=== PATIENT | male | born 1945 | race Caucasian/White ===

== ENCOUNTER 2021-10-22 12:00 | Outpatient (CLI) | payer MEDICARE, SELFPAY ==
--- NOTE | 2021-10-22 12:00 | NM_ITS ---
Final Report Patient: ERIK PAT Facility:?[facility] Patient ID:?[id number] Site Patient ID:?[id number] Site :?[id number] Study:?NM Hip Procedure THREE PHASE BONE SCAN-10/22/2021 3:40:39 PM Ordering Physician:?Eddie Mason Final Report: HISTORY: 76-year-old male. Bilateral hip replacements. Left hip pain. TECHNIQUE: 27.3 millicuries of [id number] was injected intravenously. Three phase images of the pelvis and hips were obtained. FINDINGS: The blood pool blood flow and blood pool images are unremarkable. The delayed images demonstrate bilateral hip replacements. There is abnormally increased uptake surrounding the left femoral prosthetic component and to a lesser degree the left acetabular prosthetic component. These findings are suspicious for loosening, or less likely infection. Also noted is mildly increased uptake adjacent to the distal tip of the right femoral prosthetic component. If the patient is not symptomatic in the right hip, then this of questionable significance. IMPRESSION: There are findings consistent with loosening, or less likely infection, of the left hip prosthesis. Dictated by Gopal Harris MD @ 10/22/2021 4:28:13 PM (Electronic Signature)
== END 2021-10-22 12:01 | disposition home or self-care (01) ==
PROVIDERS: PCP Family Medicine; Visit Provider Orthopaedic Surgery
DX: M25.552 Pain in left hip (principal); R10.32 Left lower quadrant pain; Z96.642 Presence of left artificial hip joint
CPT/HCPCS: 36415; 78315; 85025; 85651; 86140; A9503

== ENCOUNTER 2021-12-01 09:12 | Outpatient (REF) | payer MEDICARE, SELFPAY ==
--- OUTSIDE RECORDS SUMMARY | 2021-12-01 09:27 | XMS_ITS | Clinical Summary ---
:1945 Author Organization [facility] [place] [address] Care Team Providers Name Role Phone Jimenez Hamilton MD Primary Care Provider Allergies No known active allergies Medications Medication Sig Dispensed Refills Start Date End Date Status simvastatin Take 1 0 12/22/2019 Active (ZOCOR) 40 mg tablet by tablet mouth at bedtime. lisinopril-hydroc Take 1 0 Ac tive hlorothiazide Tablet by (10-12.5 mg) mouth once tablet (PRINZIDE; daily. ZESTORETIC) oxyCODONE Take 1 15 Tablet 0 08/23/2021 11/14/2021 Disconti nued (ROXICODONE) 5 mg Tablet (5 (* Med immediate release mg) by mouth complete/Regimen tabletIndications every 4 co mplete/Level of : Sciatic pain, hours if care change) left needed for Pain. Active Problems Problem Noted Date Spinal stenosis, lumbar region, with neurogenic claudi cation 08/23/2021 Status post left hip replacement 11/08/2020 Hip tendinitis, left 11/08/2020 Arthritis of lumbar spine 11/08/2020 Hypertensive disorder 06/13/2020 Chronic hip pain, left 06/08/2020 History of right hip replacement 06/08/2020 Sciatic pain, left 06/23/2018 Left buttock pain 06/23/2018 Primary osteoarthritis of left hip 01/19/2018 Left hip pain 01/19/2018 Other and unspecified hyperlipidemia 04/28/2006 Encounters Date Type Specialty Care Team Description 11/29/2021 Nurse/Clinic Staff Screening (COVID-19 Only pre-op) 11/29/2021 Travel 11/14/2021 Preop Visit Jimenez Hamilton, Preoperativ e Exam (12/03/21 MD Hip replacement (Left) Dr. Mason, [facility]) 11/14/2021 Travel from Last 3 Months Immunizations Name Administration Dates Next Due COVID-19 vaccine (Micrima 06/06/2020, 05/16/2020 30mcg/0.3mL) PF, MDV Influenza A (H1N1), Inactivated 04/12/2009, 02/27/2009 Influenza RIV4 (Age 18+ Years) 01/22/2019 PRESERV FREE Influenza, High-dose Inactivated 02/17/2020, 12/30/2017, Influenza, IIV3 (Age 6-35 mos) 02/25/2015 Influenza, IIV3 (Age >=3 years) 02/26/2014, 01/04/2013, 05/2012, 01/27/2011 Influenza, IIV4 (=>6mos) MDV 01/31/2016 Pneumococcal conj 13-Valent (Prevnar 06/26/2015 13) Pneumococcal, Unspecified 01/05/2009 TD, UNSPECIFIED 03/30/2002 Tdap 2012 Zoster (Shingrix-RZV, recombinant) 09/23/2018, 06/17/2018 Zoster (Zostavax-ZVL, live) 2012 Family History Medical History Relation Name Comments Heart Disease Father Relation Name Status Comments Father Mother Social History Tobacco Use Types Packs/Day Years Used Date Never Smoker Smokeless Tobacco: Never Used Tobacco Cessation: Counseling Given: Yes Alcohol Use Standard Drinks/Week Comments Yes 0 (1 standard drink = 0.6 oz pure alcoho l) Sex Assigned at Date Recorded Not on file COVID-19 Exposure Response Date Recorded In the last 10 days, have you been in contact with No / Unsu re 11/29/2021 8:57 AM CDT someone who was confirmed or suspected to have Coronavirus/COVID-19? Obstetrics History Last Filed Vital Signs Vital Sign Reading Time Taken Comments Blood Pressure 128/72 11/14/2021 9:12 AM CDT Pulse 75 11/14/2021 9:12 AM CDT Temperature 36.5 ??C (97.7 ??F) 08/23/2021 1:30 PM CDT Respiratory Rate 14 08/23/2021 1:30 PM CDT Oxygen Saturation 96% 11/14/2021 9:12 AM CDT Inhaled Oxygen Concentration - - Weight 88 kg (194 lb) 11/14/2021 9:12 AM CDT Height 175.3 cm (5' 9) 08/23/2021 7:10 AM CDT Body Mass Index 28.65 08/23/2021 7:10 AM CDT Plan of Treatment Health Maintenance Due Date Last Done Comments Hepatitis C screening for age 0205/27/1963 18-79 Medicare Wellness for age 65+ 05/27/2008 COVID-19 vaccine series (3 - 11/06/2020 06/06/2020, 021 Booster for Pfizer series) Depression screening for age 12+ 12/21/2020 12/22/2019, Influenza for age 65+ 11/28/2021 02/17/2020, 01/22/2019, 12/30/2017, Additional history exists Tetanus booster 2022 2012, 03/30/2002 BMI (ht and wt on same day) for 07/04/2022 07/04/2021, 05/01, age 18+ 05/14/2021, Additional history exists Tdap Completed 2012 Pneumococcal series for age 65+ Completed 06/26/2015, 11/2008 Zoster (shingles) series for age Completed 09/23/2018, , 50+ 2012 Medical Devices Implanted Type Area Lead Vulcanizing Operator Device Shelf Model / Identifier Expiration Serial / Lot Date [employer] Delta Ceramic V40 Femoral Head Left: Hip [employer]-HAZEL 03/06/2025 [id number] / Implanted: Qty: 1 on 06/13/2020 by Osorio Ulloa MD at [facility] / [id number] Procedures Procedure Name Priority Date/Time Associated Diagnosis Comme nts COVID 19 COLLECTION Routine 11/29/2021 9:03 AM Encounter for R esults for this CDT screening for procedure are in COVID-19 the results section. BASIC METABOLIC Routine 11/14/2021 9:57 AM Preop examination R esults for this PANEL CDT procedure are i n the results section. CBC W PLT NO DIFF Routine 11/14/2021 9:57 AM Preop examination Results for this CDT procedure are i n the results section. from Last 3 Months Results COVID 19 COLLECTION (11/29/2021 9:03 AM CDT) [facility] Method Time Signature TESTING [facility] 11/30/2021 [facility] Laboratory 10:30 AM LABORATORY-CE CDT NTRAL LABORATORY Comment: Specimen submitted to [facility] for testing. Specimen Anatomical Location / Collection Method Collection Oumar e Received Time (Source) Laterality / Volume Other SPECIMEN FROM Non-Blood / 11/29/2021 9:03 11/29/2021 NASOPHARYNGEAL Unknown AM CDT 11:15 AM CDT STRUCTURE / Unknown Jimenez Hamilton MD SEND OUTS Performing Organization Address City/State/ZIP Code Phon e Number [facility] [address] [place] [address] LABORATORY-CENTRAL 2000 LABORATORY (ABNORMAL) CBC W PLT NO DIFF (11/14/2021 9:57 AM CDT) [facility] Method Time Signature WHITE BLOOD 6.1 4.5 - 11.0 11/14/2021 [place] COUNT thou/cu mm 10:17 AM [facility] RED BLOOD COUNT 4.11 (L) 4.30 - 11/14/2021 [place] 5.90 10:17 AM [facility] mil/cu mm LABORATORY HEMOGLOBIN 13.8 13.5 - 11/14/2021 [place] 17.5 g/dL 10:17 AM [facility] HEMATOCRIT 40.1 37.0 - 11/14/2021 [place] 53.0 % 10:17 AM [facility] MCV 98 80 - 100 11/14/2021 [place] fL 10:17 AM [facility] MCH 33.6 26.0 - 11/14/2021 [place] 34.0 pg 10:17 AM [facility] MCHC 34.4 32.0 - 11/14/2021 [place] 36.0 g/dL 10:17 AM [facility] RDW 12.7 11.5 - 11/14/2021 [place] 15.5 % 10:17 AM [facility] PLATELET COUNT 208 140 - 440 11/14/2021 [place] thou/cu mm 10:17 AM [facility] MPV 9.4 6.5 - 11.0 11/14/2021 [place] fL 10:17 AM [facility] Specimen Anatomical Collection Method / Collection Time Recei kendal Time (Source) Location / Volume Laterality Blood BLOOD SPECIMEN / Venipuncture / 11/14/2021 9:57 2021 9:59 Unknown Unknown AM CDT AM CDT Jimenez Hamilton MD HEMATOLOGY Performing Organization Address City/State/ZIP Code Phon e Number [facility] [address] [place] [address] (ABNORMAL) BASIC METABOLIC PANEL (11/14/2021 9:57 AM CDT) Analysis Performed At Patho logist Time Signature SODIUM 139 135 - 145 11/14/2021 [place] mmol/L 10:37 AM [facility] POTASSIUM 4.3 3.5 - 5.0 11/14/2021 [place] mmol/L 10:37 AM [facility] CHLORIDE 105 98 - 110 11/14/2021 [place] mmol/L 10:37 AM [facility] CO2,TOTAL 26 21 - 31 11/14/2021 [place] mmol/L 10:37 AM [facility] ANION GAP 8 5 - 18 11/14/2021 [place] 10:37 AM [facility] GLUCOSE 122 (H) 65 - 100 11/14/2021 [place] mg/dL 10:37 AM [facility] CALCIUM 9.7 8.5 - 10.5 11/14/2021 [place] mg/dL 10:37 AM [facility] BUN 23 8 - 25 11/14/2021 [place] mg/dL 10:37 AM [facility] CREATININE 1.17 0.72 - 11/14/2021 [place] 1.25 mg/dL 10:37 AM [facility] BUN/CREAT RATIO 20 10 - 20 11/14/2021 [place] 10:37 AM [facility] eGFR 64 (L) >90 11/14/2021 [place] mL/min/1.7 10:37 AM [facility] 3m2 LABORATORY Comment: As of 2021, eGFR is calcu lated by the CKD-EPI creatinine equation without race adjustment. eGFR can be inf luenced by muscle mass, exercise, and diet. The reported eGFR is an estimation only and is only applicable if the renal function is stable. Specimen Anatomical Collection Method / Collection Time Recei kendal Time (Source) Location / Volume Laterality Blood BLOOD SPECIMEN / Venipuncture / 11/14/2021 9:57 2021 9:59 Unknown Unknown AM T AM CDT Jimenez Hamilton MD CHEMISTRY Performing Organization Address City/State/ZIP Code Phon e Number [facility] [address] [place] [address] from Last 3 Months Insurance Payer Benefit Plan / Subscriber ID Effective Dates Phone Addre ss Type Group MEDICARE PART A MEDICARE PART A [id number] 2008-Present ATTN: CLAIMS - HB USE ONLY HB ONLY [address] [facility] [place] [address] ARE [facility] MEDICARE [id number] 2019-Present [address] [place] [address] Advance Directives Documents on File Type Date Recorded Patient Erco Machine Operator Explanati on Healthcare Directive 04/29/2006 12:00 AM 05-27-16 Latest Code Status on File Code Status Date Activated Date Inactivated Comments Full Code 06/13/2020 5:56 AM 06/14/2020 1:16 PM Code Status Discussion: Discussed Care Teams Business Planner Relationship Specialty Start Date End Date Jimenez Hamilton MD PCP - General Family Practice 11/14/21 [address] [place] [place] [address]
--- OUTSIDE RECORDS SUMMARY | 2021-12-01 09:27 | XMS_ITS | Continuity of Care Document ---
:1945 Author Organization [facility] Care Team Providers Name Role Phone [facility] Unavailable Unavailable Problems Combined list of problems from Department of Defense and Veterans Affairs facilities. It does not include entries that were removed or entered in error. Problem Status Onset Problem Date of Comments Source Date Type Resolution Basal Cell Active Condition [place] Carcinoma of Skin [facility] (SCT 594402212) Hyperlipidemia Active Condition [place] (SNOMED CT [facility] [id number]) Hypertensive Active Condition [place] disorder [facility] Osteoarthritis Active Condition Jun 25, PACO HOLDER 2015 Entered [facility] By: DAVID CARCAMO Comment: S/P right total hip in 2008. Polyp of colon Active Condition Jul [facility] By: JOI ROLDAN Comment: last colonoscopy 2018 next rec 2026 Sensorineural Active Condition [place] Hearing Loss [facility] Colonoscopy normal Inactive Condition 07/10/2017 Nov 12, QUEC[place]E 2016 Entered [facility] By: JOI ROLDAN Comment: 2016 ( + FIT test) , next colonoscopy rec 2026 Impaired FASTING Inactive Condition 07/23/2021 Jun 27, Umu FERRER Glucose 2014 Entered [facility] By: JOI ROLDAN Comment: 2014 Hgb A1c 5.8 left buttock pain Inactive Condition 07/23/2021 Jun 17, QUECHEE with exertion, 2018 Entered [facility] resolves with rest By: DAVID RODRIGUEZ Comment: 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, MRI of lumbar spine ordered 05/2018Jun 17, 2018 Entered By: DAVID RODRIGUEZ Comment: if MRI shows no cause, consider ABIs, right foot Inactive Condition 07/23/2021 Jun 17, [place] weakness, unclear 2018 Entered [facility] etiology By: DAVID RODRIGUEZ Comment: MRI lumbar spine ordered 05/2018 right palm callus Inactive Condition 07/23/2021 Jun 17, QUECHEE versus early 2018 Entered [facility] CS Peyronie's By: DAVID RODRIGUEZ Comment: 05/2018, continue to monitor, asymptomatic Diagnosis: active Diagnosis [place] ICD-10[facility]CM H25.13 [facility] Age-related nuclear cataract, bilateralwith Provider Comments: Age-related nuclear cataract, bilateral Diagnosis: active Diagnosis [place] ICD-10-CM L82.1 [facility] Other seborrheic keratosiswith Provider Comments: Other seborrheic keratosis Diagnosis: active Diagnosis [place] ICD-10-CM D48.5 [facility] Neoplasm of uncertain behavior of skinwith Provider Comments: Neoplasm of uncertain behavior of skin Diagnosis: active Diagnosis [place] ICD-10-CM E78.5 [facility] Hyperlipidemia, unspecifiedwith Provider Comments: Hyperlipidemia (SCT 11612667) Medications Combined list of outpatient medications from Department of Defense and Veterans Affairs facilities. Medications provided include 1) outpatient medications from the last 15 months, and 2) patient-reported medications. Medication Details Route Status Patient Prescription Prescription Last Ordering Order Source Instructions Expires Number Dispense Provider Date Date FLUTICASONE SPRAY 2 NASAL ACTIVE 07/24/2022 [id number] MO ORHEAD, 07/24/ [place] PROPIONATE SPRAYS 2 MELODY 2022 [place] [facility] 50MCG/SPRAY IN EACH M HCS SOLN,NASAL, NOSTRIL 16GM EVERY DAY FOR COUGH AND NASAL CONGESTI ON HYDROCHLORO TAKE ONE ORALLY ACTIVE Jennifer ROLDAN 04/29 / [place] THIAZIDE TABLET OHN E 2011 [place] [facility] 12.5MG/TOY BY MOUTH HCS NOPRIL 10MG EVERY TAB MORNING SIMVASTATIN TAKE ORALLY ACTIVE 06/07/2022 [id number] MOORH EAD, 06/10/ [place] 80MG TAB ONE-HALF 2 MELODY 2022 [place] [facility] TABLET M [facility] BY MOUTH DAILY SIMVASTATIN TAKE ORALLY DISCONT 06/14/2021 [id number] M OORHEAD, 06/13/ [place] 80MG TAB ONE-HALF INUE 1 MELODY 2021 [place] [facility] TABLET M [facility] BY MOUTH DAILY Immunizations Combined list of available immunizations from the Department of Defense and Veterans Affairs facilities. Immunization Series Date Administered Site Reaction Lot CVX Drug St atus Comments Source Given By Number Code Cost Manager INFLUENZA, complet [place] UNSPECIFIED 2020 ed [place] [facility] COVID-19 2 complet [place] PJ (PFIZER), 2020 ed HEAL TH MRNA, LNP-S, PF, 30 MCG/0.3 ML DOSE COVID-19 1 complet [place] PJ (TappnGo), 2020 ed HEAL TH MRNA, LNP-S, PF, 30 MCG/0.3 ML DOSE INFLUENZA, complet [place] HIGH DOSE 2018 ed NS SEASONAL HEALT HC ARE CLINICS ZOSTER 2 complet [place] RECOMBINANT 2018 ed [place] [facility] [place] 1 complet [place] RECOMBINANT 2018 ed [facility] INFLUENZA, complet [place] SEASONAL, 2017 ed [facility] [facility] INJECTABLE [facility] INFLUENZA, complet [place] HIGH DOSE 2016 ed [place] [facility] SEAS[facility]AL [facility] INFLUENZA, complet [place] HIGH DOSE 2015 ed [place] [facility] SEAS[facility] PNEUMOCOCCAL complet [place] h,M51 [place] CONJUGATE PCV 2016 ed 194, [place] [facility] 13 HCS INFLUENZA, complet [place] SEASONAL, 2014 ed [place] [facility] INJECTABLE [facility] INFLUENZA, complet [place] SEASONAL, 2014 ed [place] [facility] INJECTABLE [facility] INFLUENZA, complet [place] UNSPECIFIED 2012 ed [facility] TDAP complet [place] 2012 ed [place] reyes, HCS [id number] A, 06/18/14 ZOSTER LIVE complet [place] 2012 ed INC, [place] [id number], HCS [id number] INFLUENZA, complet [place] UNSPECIFIED 2011 ed [facility] INFLUENZA, complet [place] UNSPECIFIED 2010 ed [facility] INFLUENZA, complet [place] UNSPECIFIED 2009 ed [place] [facility] NOVEL complet [place] INFLUENZA-H1N 2008 ed [place] [facility] 04-07, ALL HCS FORMULATIONS PNEUMOCOCCAL, complet daina ick,lo [place] UNSPECIFIED 2008 ed t [facility] [place] [facility] FORMULATION 1314y,5/ 0 HCS 8/11 INFLUENZA, complet [place] UNSPECIFIED 2008 ed [place] [facility] TD(ADULT) 01/01/ 139 complet outside [place] UNSPECIFIED 2002 ed provider [facility] S Results Combined list of recent chemistry, hematology and other laboratory results from Department of Defense and Veterans Affairs, ranging from 15 months to all on record, depending upon the facility. Order Results Value Reference Date Interpretation Specimen Commen ts Source Name Range HEMOGLOB HEMOGLOBIN 6.0 4.0 - 6.0 07/19 Specimen T ype: BLOOD [place] IN A1C A1C/HEMOGL /2021 No comment en tered. IS [facility] OBIN.TOTAL Ordering Pro vider: MELODY MOREAU IN BLOOD Report Release d Date/Time: Jul 19, 2021 10:29 AM Reporting Lab: [facility] [address] [place] [address] Performing Lab: [facility] [address] [place] [address] ANTI-HEP HEPATITIS NEGATIVE 07/19 Specimen Typ e: SERUM [place] C(EIA) C VIRUS AB /2021 No comment en tered. IS [facility] [[place]] Ordering Pro vider: MELODY MOREAU IN SERUM Report Release d Date/Time: Jul 19, 2021 10:34 AM Reporting Lab: [facility] [place] [address] Performing Lab: [facility] [place] [address] LIPID CHOLESTERO 172 <199 - 199 07/19 Specimen T ype: PLASMA [place] PANEL,NO L /2021 No comment ente red. IS [facility] N-[place]ST[place] [MASS/VOLU Ordering Pr ovider: MELODY MOREAU] IN Report Released Date/Time: Jul 19, 2021 10:29 AM SERUM OR Reporting Lab: [facility] [address] [place] [address] Performing Lab: [facility] [place] [address] LIPID CHOLESTERO 42 40 07/19 Specimen Type : PLASMA [place] PANEL,NO L IN HDL /2021 No comment ent ered. IS [facility] N-FASTIN [MASS/VOLU Ordering Pr ovider: MELODY MOREAU] IN Report Released Date/Time: Jul 19, 2021 10:29 AM SERUM OR Reporting Lab: [facility] [place] [address] Performing Lab: [facility] [address] [place] [facility] [place] [address] LIPID CHOLESTERO 94 <99 - 99 07/19 Specimen Typ e: PLASMA [place] PANEL,NO L IN LDL /2021 No comment ent ered. IS [facility] N-[place]ST[place] [MASS/VOLU Ordering Pr ovider: MELODY MOREAU] IN Report Released Date/Time: Jul 19, 2021 10:29 AM SERUM OR Reporting Lab: [facility] PLAS[facility] BY [address] [facility] [address] CALCULATIO Performing L ab: [facility] [address] [place] [facility] [place] [address] LIPID CHOLESTERO 36 <29 - 29 07/19 H Specimen Typ e: PLASMA [place] PANEL,NO L IN VLDL /2021 No comment en tered. IS [facility] N-[place] [MASS/VOLU Ordering Pr ovider: MELODY MOREAU] IN Report Released Date/Time: Jul 19, 2021 10:29 AM SERUM OR Reporting Lab: [facility] PLAS[facility] BY [address] [facility] [address] CALCULATIO Performing L ab: [facility] [address] [place] [place] [address] LIPID CHOLESTERO 130 <129 - 129 07/19 H Specimen T ype: PLASMA [place] PANEL,NO L NON HDL /2021 No comment en tered. IS [facility] N-[place] [MASS/VOLU Ordering Pr ovider: MELODY MOREAU] IN Report Released Date/Time: Jul 19, 2021 10:29 AM SERUM OR Reporting Lab: [facility] [address] [place] [facility] [place] [address] Performing Lab: [facility] [address] [place] [facility] [place] [address] LIPID TRIGLYCERI 179 <149 - 149 07/19 H Specimen T ype: PLASMA [place] PANEL,NO DE /2021 No comment ente red. IS [facility] N-FAST[place] [MASS/VOLU Ordering Pr ovider: MELODY MOREAU] IN Report Released Date/Time: Jul 19, 2021 10:29 AM SERUM OR Reporting Lab: [facility] [address] [place] [facility] [place] [address] Performing Lab: [facility] [place] [address] BASIC CREATININE 1.1 0.7 - 1.2 07/19 Specimen Ty pe: PLASMA [place] METABOLI [MASS/VOLU /2021 No comment e ntered. IS [facility] C ME] IN Ordering Provid er: MELODY MOREAU PANEL+MG SERUM OR Report Releas ed Date/Time: Jul 19, 2021 10:29 AM PLASMA Reporting Lab: [facility] [address] [place] [facility] [place] [address] Performing Lab: [facility] [address] BASIC UREA 21 8 - 26 07/19 Specimen Type: P LASMA [place] METABOLI /2021 No comment ent ered. IS [facility] C [MASS/VOLU Ordering Pro vider: LIZZETHMELODY ZAVALA M PANEL+MG ME] IN Report Release d Date/Time: Jul 19, 2021 10:29 AM SERUM OR Reporting Lab: [facility] [address] [place] [place] [address] Performing Lab: [facility] [address] [facility] [facility] [place] [address] BASIC GLUCOSE 115 74 - 100 07/19 H Specimen Type: PLASMA [place] METABOLI [MASS/VOLU /2021 No comment e ntered. IS [facility] C ME] IN Ordering Provid er: LIZZETHMELODY ZAVALA M PANEL+MG SERUM OR Report Releas ed Date/Time: Jul 19, 2021 10:29 AM PLASMA Reporting Lab: [facility] [address] [place] [address] Performing Lab: [facility] [address] [place] [place] [address] BASIC SODIUM 137 136 - 145 07/19 Specimen Type: PLASMA [place] METABOLI [MOLES/VOL /2021 No comment e ntered. IS [facility] C UME] IN Ordering Provid er: MELODY MOREAU M PANEL+MG SERUM OR Report Releas ed Date/Time: Jul 19, 2021 10:29 AM PLASMA Reporting Lab: [facility] [address] [place] [facility] [place] [address] Performing Lab: [facility] [address] [facility] [place] [address] BASIC POTASSIUM 4.1 3.5 - 5.1 07/19 Specimen Typ e: PLASMA [place] METABOLI [MOLES/VOL /2021 No comment e ntered. IS [facility] C UME] IN Ordering Provid er: LIZZETHMELODY M PANEL+MG SERUM OR Report Releas ed Date/Time: Jul 19, 2021 10:29 AM PLASMA Reporting Lab: [facility] [address] [place] [address] Performing Lab: [facility] [address] [place] [address] BASIC CHLORIDE 104 98 - 107 07/19 Specimen Type: PLASMA [place] METABOLI [MOLES/VOL /2021 No comment e ntered. IS [facility] C UME] IN Ordering Provid er: LIZZETHMELODY M PANEL+MG SERUM OR Report Releas ed Date/Time: Jul 19, 2021 10:29 AM PLASMA Reporting Lab: [facility] [place] [address] Performing Lab: [facility] [place] [address] BASIC CARBON 25 22 - 29 07/19 Specimen Type: P LASMA [place] METABOLI DIOXIDE, /2021 No comment ent ered. IS [facility] C TOTAL Ordering Provid er: LIZZETHMELODY LAGOS M PANEL+MG [MOLES/VOL Report Rele ased Date/Time: Jul 19, 2021 10:29 AM UME] IN Reporting Lab: [facility] SERUM OR [address] [place] [facility] [place] [address] PLASMA Performing Lab: [facility] [place] [address] BASIC CALCIUM 9.8 8.4 - 10.2 07/19 Specimen Type : PLASMA [place] METABOLI [MASS/VOLU /2021 No comment e ntered. IS [facility] C ME] IN Ordering Provid er: LIZZETHMELODY M PANEL+MG SERUM OR Report Releas ed Date/Time: Jul 19, 2021 10:29 AM PLASMA Reporting Lab: [facility] [place] [address] Performing Lab: [facility] [address] [facility] [place] [address] BASIC MAGNESIUM 1.9 1.6 - 2.6 07/19 Specimen Typ e: PLASMA [place] METABOLI [MASS/VOLU /2021 No comment e ntered. IS [facility] C ME] IN Ordering Provid er: LIZZETH,MELODY M PANEL+MG SERUM OR Report Releas ed Date/Time: Jul 19, 2021 10:29 AM PLASMA Reporting Lab: [facility] [place] [address] Performing Lab: [facility] [address] [place] [address] BASIC ANION GAP 8 5 - 15 07/19 Specimen Type: PLASMA [place] METABOLI IN SERUM /2021 No comment ent ered. IS [facility] C OR PLASMA Ordering Prov ider: MELODY MOREAU PANEL+MG Report Release d Date/Time: Jul 19, 2021 10:29 AM Reporting Lab: [facility] [address] [place] [address] Performing Lab: [facility] [place] [address] BASIC CREAT 69 60 07/19 Specimen Type: P LASMA [place] METABOLI EGFR(CKD-E /2021 No comment e ntered. IS [facility] C PI) Ordering Provid er: MELODY MOREAU PANEL+MG Report Release d Date/Time: Jul 19, 2021 10:29 AM Reporting Lab: [facility] [address] [facility] [place] [address] Performing Lab: [facility] [place] [address] CBC LEUKOCYTES 6.69 4.0 - 11.0 07/19 Specimen T ype: BLOOD [place] [#/VOLUME] /2021 No comment en tered. IS [facility] IN BLOOD Ordering Provi nika: MELODY MOREAU BY Report Released Date/Time: Jul 19, 2021 10:29 AM AUTOMATED Reporting Lab : [facility] [address] [facility] [place] [address] Performing Lab: [facility] [address] [facility] [place] [address] CBC ERYTHROCYT 4.28 4.6 - 6.2 07/19 L Specimen Ty pe: BLOOD [place] ES /2021 No comment enter ed. IS [facility] [#/VOLUME] Ordering Pro vider: MELODY MOREAU IN BLOOD Report Release d Date/Time: Jul 19, 2021 10:29 AM BY Reporting Lab: [facility] AUTOMATED [address] [place] [facility] [place] [address] COUNT Performing Lab: [facility] [place] [address] CBC HEMOGLOBIN 14.2 13.5 - 07/19 Specimen Type : BLOOD [place] [MASS/VOLU 17.9 No comment en tered. IS [facility] ME] IN Ordering Provid er: MELODY MOREAU BLOOD Report Released Date/Time: Jul 19, 2021 10:29 AM Reporting Lab: [facility] [place] [address] Performing Lab: [facility] [place] [address] CBC HEMATOCRIT 39.5 41 - 54 07/19 L Specimen Type : BLOOD [place] [VOLUME /2021 No comment enter ed. IS [facility] FRACTION] Ordering Prov ider: MELODY MOREAU OF BLOOD Report Release d Date/Time: Jul 19, 2021 10:29 AM BY Reporting Lab: [facility] [address] [facility] [address] COUNT Performing Lab: [facility] [address] [facility] [place] [address] CBC MCV 92.3 80 - 100 07/19 Specimen Type: BLOOD [place] [ENTITIC /2021 No comment ente red. IS [facility] VOLUME] BY Ordering Pro vider: MELODY MOREAU AUTOMATED Report Releas ed Date/Time: Jul 19, 2021 10:29 AM COUNT Reporting Lab: [facility] [place] [address] Performing Lab: [facility] [place] [address] CBC MCH 33.2 27 - 33 07/19 H Specimen Type: B LOOD [place] [ENTITIC /2021 No comment ente red. [facility] MASS] BY Ordering Provi nika: MELODY MOREAU AUTOMATED Report Releas ed Date/Time: Jul 19, 2021 10:29 AM COUNT Reporting Lab: [facility] [place] [address] Performing Lab: [facility] [address] [facility] [place] [address] CBC MCHC 35.9 32.0 - 07/19 Specimen Type: B LOOD [place] [MASS/VOLU 37.5 No comment en tered. [facility] ME] BY Ordering Provid er: MELODY MOREAU AUTOMATED Report Releas ed Date/Time: Jul 19, 2021 10:29 AM COUNT Reporting Lab: [facility] [address] [place] [address] Performing Lab: [facility] [address] [place] [address] CBC PLATELETS 204 150 - 400 07/19 Specimen Typ e: BLOOD [place] [#/VOLUME] /2021 No comment en tered. IS [facility] IN BLOOD Ordering Provi nika: MELODY MOREAU BY Report Released Date/Time: Jul 19, 2021 10:29 AM AUTOMATED Reporting Lab : [facility] [address] [place] [address] Performing Lab: [facility] [address] [place] [address] CBC PLATELET 9.1 7.4 - 10.4 07/19 Specimen Typ e: BLOOD [place] MEAN /2021 No comment enter ed. IS [facility] VOLUME Ordering Provid er: MELODY MOREAU [ENTITIC Report Release d Date/Time: Jul 19, 2021 10:29 AM VOLUME] IN Reporting La b: [facility] BLOOD BY [address] [place] [facility] [facility] [place] [address] AUTOMATED Performing La b: [facility] [address] [place] [address] CBC ERYTHROCYT 12.3 11.5 - 07/19 Specimen Type : BLOOD [place] E 14.5 /2021 No comment enter ed. IS [facility] DISTRIBUTI Ordering Pro vider: MELODY MOREAU ON WIDTH Report Release d Date/Time: Jul 19, 2021 10:29 AM [RATIO] BY Reporting La b: [facility] [address] [facility] [place] [address] COUNT Performing Lab: [facility] [address] [place] [address] HEMOGLOB HEMOGLOBIN 5.8 4.0 - 6.0 11/28 Specimen T ype: BLOOD [place] IN A1C A1C/HEMOGL /2020 No comment en tered. IS [facility] OBIN.TOTAL Ordering Pro vider: MELODY MOREAU IN BLOOD Report Release d Date/Time: Jul 11, 2020 12:09 PM Reporting Lab: [facility] [address] [place] [address] Performing Lab: [facility] [address] [place] [address] BASIC CREATININE 0.9 0.7 - 1.2 11/28 Specimen Ty pe: PLASMA [place] METABOLI [MASS/VOLU /2020 No comment e ntered. IS [facility] C ME] IN Ordering Provid er: LIZZETHMELODY ZAVALA M PANEL+MG SERUM OR Report Releas ed Date/Time: Jul 11, 2020 12:09 PM PLASMA Reporting Lab: [facility] [place] [address] Performing Lab: [facility] [address] [facility] [place] [address] BASIC UREA 19 8 - 26 11/28 Specimen Type: P LASMA [place] METABOLI /2020 No comment ent ered. [facility] [MASS/VOLU Ordering Pro vider: MELODY MOREAU M PANEL+MG ME] IN Report Release d Date/Time: Jul 11, 2020 12:09 PM SERUM OR Reporting Lab: [facility] PLASMA [address] [place] [facility] [place] [address] Performing Lab: [facility] [address] [facility] [place] [address] BASIC GLUCOSE 102 74 - 100 / H Specimen Type: PLASMA [place] METABOLI [MASS/VOLU /2020 No comment e ntered. IS [facility] C ME] IN Ordering Provid er: LIZZETHMELODY ZAVALA M PANEL+MG SERUM OR Report Releas ed Date/Time: Jul 11, 2020 12:09 PM PLASMA Reporting Lab: [facility] [address] [facility] [place] [address] Performing Lab: [facility] [address] [facility] [place] [address] BASIC SODIUM 139 136 - 145 11/28 Specimen Type: PLASMA [place] METABOLI [MOLES/VOL /2020 No comment e ntered. IS [facility] C UME] IN Ordering Provid er: MELODY MOREAU M PANEL+MG SERUM OR Report Releas ed Date/Time: Jul 11, 2020 12:09 PM PLASMA Reporting Lab: [facility] [address] [place] [facility] [place] [address] Performing Lab: [facility] [address] [facility] [place] [address] BASIC POTASSIUM 4.2 3.5 - 5.1 11/28 Specimen Typ e: PLASMA [place] METABOLI [MOLES/VOL /2020 No comment e ntered. IS [facility] C UME] IN Ordering Provid er: LIZZETHBRENDAMELODY M PANEL+MG SERUM OR Report Releas ed Date/Time: Jul 11, 2020 12:09 PM PLASMA Reporting Lab: [facility] [place] [address] Performing Lab: [facility] [address] [place] [address] BASIC CHLORIDE 106 98 - 107 11/28 Specimen Type: PLASMA [place] METABOLI [MOLES/VOL /2020 No comment e ntered. IS [facility] C UME] IN Ordering Provid er: LIZZETHIKEMELODY M PANEL+MG SERUM OR Report Releas ed Date/Time: Jul 11, 2020 12:09 PM PLASMA Reporting Lab: [facility] [address] [place] [address] Performing Lab: [facility] [place] [address] BASIC CARBON 23 22 - 29 11/28 Specimen Type: P NAWAF [place] METABOLI DIOXIDE, /2020 No comment ent ered. IS [facility] C TOTAL Ordering Provid er: MELODY MOREAU M PANEL+MG [MOLES/VOL Report Rele ased Date/Time: Jul 11, 2020 12:09 PM UME] IN Reporting Lab: [facility] SERUM OR [address] [place] [facility] [address] PLASMA Performing Lab: [facility] [place] [address] BASIC CALCIUM 9.8 8.4 - 10.2 11/28 Specimen Type : PLASMA [place] METABOLI [MASS/VOLU /2020 No comment e ntered. IS [facility] C ME] IN Ordering Provid er: LIZZETHIKEMELODY M PANEL+MG SERUM OR Report Releas ed Date/Time: Jul 11, 2020 12:09 PM PLASMA Reporting Lab: [facility] [address] [place] [address] Performing Lab: [facility] [address] [facility] [address] BASIC MAGNESIUM 2.0 1.6 - 2.6 11/28 Specimen Typ e: PLASMA [place] METABOLI [MASS/VOLU /2020 No comment e ntered. IS [facility] C ME] IN Ordering Provid er: LIZZETHIKEMELODY M PANEL+MG SERUM OR Report Releas ed Date/Time: Jul 11, 2020 12:09 PM PLASMA Reporting Lab: [facility] [place] [address] Performing Lab: [facility] [address] [place] [address] BASIC ANION GAP 10 5 - 15 11/28 Specimen Type: PLASMA [place] METABOLI IN SERUM /2020 No comment ent ered. IS [facility] C OR PLASMA Ordering Prov ider: MELODY MOREAU PANEL+MG Report Release d Date/Time: Jul 11, 2020 12:09 PM Reporting Lab: [facility] [address] [facility] [address] Performing Lab: [facility] [address] [facility] [address] BASIC GLOMERULAR 82 60 11/28 Specimen Type : PLASMA [place] METABOLI FILTRATION /2020 No comment e ntered. IS [facility] C RATE/1.73 Ordering Prov ider: MELODY MOREAU PANEL+MG SQ Report Release d Date/Time: Jul 11, 2020 12:09 PM M.PREDICTE Reporting La b: [facility] [VOLUME [address] [place] [facility] [address] RATE/AREA] Performing L ab: [facility] IN SERUM, ONE [place] [facility] [address] PLASMA OR BLOOD BY CREATININE -BASED FORMULA (CKD-EPI) LIPID CHOLESTERO 149 <199 - 199 11/28 Specimen T ype: PLASMA [place] PANEL,NO L /2020 No comment ente red. IS [facility] N-[place] [MASS/VOLU Ordering Pr ovider: MELODY MOREAU] IN Report Released Date/Time: Jul 11, 2020 12:09 PM SERUM OR Reporting Lab: [facility] PL[facility]MA [address] [facility] [address] Performing Lab: [facility] [address] [facility] [address] LIPID CHOLESTERO 47 40 11/28 Specimen Type : PLASMA [place] PANEL,NO L IN HDL /2020 No comment ent ered. IS [facility] N-[place] [MASS/VOLU Ordering Pr ovider: MELODY MOREAU] IN Report Released Date/Time: Jul 11, 2020 12:09 PM SERUM OR Reporting Lab: [facility] PL[facility]MA [address] [facility] [address] Performing Lab: [facility] [address] [facility] [address] LIPID CHOLESTERO 81 <99 - 99 11/28 Specimen Typ e: PLASMA [place] PANEL,NO L IN LDL /2020 No comment ent ered. IS [facility] [MASS/VOLU Ordering Pr ovider: MELODY MOREAU] IN Report Released Date/Time: Jul 11, 2020 12:09 PM SERUM OR Reporting Lab: [facility] [place] [facility] [phone] CALCULATIO Performing L ab: [facility] [address] [facility] [address] LIPID CHOLESTERO 21 <29 - 29 11/28 Specimen Typ e: PLASMA [place] PANEL,NO L IN VLDL /2020 No comment en tered. IS [facility] [MASS/VOLU Ordering Pr ovider: MELODY MOREAU] IN Report Released Date/Time: Jul 11, 2020 12:09 PM SERUM OR Reporting Lab: [facility] [place] [facility] [phone] CALCULATIO Performing L ab: [facility] [address] [facility] [address] LIPID CHOLESTERO 102 <129 - 129 11/28 Specimen T ype: PLASMA [place] PANEL,NO L NON HDL /2020 No comment en tered. IS [facility] [MASS/VOLU Ordering Pr ovider: MELODY MOREAU] IN Report Released Date/Time: Jul 11, 2020 12:09 PM SERUM OR Reporting Lab: [facility] [address] [facility] [address] Performing Lab: [facility] [address] [facility] [address] LIPID TRIGLYCERI 107 <149 - 149 11/28 Specimen T ype: PLASMA [place] PANEL,NO DE /2020 No comment ente red. IS [facility] [MASS/VOLU Ordering Pr ovider: MELODY MOREAU] IN Report Released Date/Time: Jul 11, 2020 12:09 PM SERUM OR Reporting Lab: [facility] [address] [facility] [address] Performing Lab: [facility] [address] [facility] [address] Vital Signs Combined list of inpatient and outpatient Vital Signs from Department of Defense and Veterans Affairs, ranging from 12 months to all on record, depending upon the facility. Vital Sign Value Date Comments Source SYSTOLIC BLOOD PRESSURE 129 07/19/2021 10:02:56 [facility] DIASTOLIC BLOOD PRESSURE 73 07/19/2021 10:02:56 [facility] PULSE OXIMETRY 94% 07/19/2021 10:02:56 [place] [facility] WEIGHT 201 07/19/2021 10:02:56 [place] [facility] BMI 30kg/m2 07/19/2021 10:02:56 [place] [facility] [facility] PAIN 0 07/19/2021 10:02:56 [place] [facility] HEIGHT 69 07/19/2021 10:02:56 [place] [facility] TEMPERATURE 98.2 07/19/2021 10:02:56 [place] [facility] PULSE 88 07/19/2021 10:02:56 [place] [facility] RESPIRATION 17 07/19/2021 10:02:56 [place] [facility] Encounters Combined list of: 1) Encounters from Department of Veterans Affairs facilities going back up to the last 18 months, not all [place] inpatient encounters are included; 2) Encounters from the Department of [facility] facilities going back up to 280 months. Location Location Encounter Encounter Reason Attending ADM DC Stat us Disposition Source Details Type Number For Provider Date Date Visit Outpatient [id number] 06/06 CHARIT[facility] NA Encounter [id number] [facility] Outpatient [id number] 06/08 [place] Encounter [id number] /2021 [facility] Outpatient [id number] Diagnos LIZZETH,E 07/11 [place] Encounter [id number] is: MYRANDA [facility] ICD-10- [facility] CM E78.5 Hyperli pidemia , unspeci fied
with Provide r Comment s: Hyperli pidemia (SCT [id number] 4) OFFICE O/P [id number] Diagnos STU CHRISTENSEN 11/28 [place] EST MOD [id number] is: ER S /2020 [facility] 30-[facility] ICD-10- [facility] CM H25.13 Age-rel ated nuclear catarac t, bilater al
with Provide r Comment s: Age-rel ated nuclear catarac t, bilater al Outpatient [id number] 12/28 [place] Encounter [id number] /2020 [facility] OFFICE O/P [id number] Diagnos LIZZETH,E 07/19 [place] EST MOD [id number] is: MYRANDA M /2021 [facility] ICD-10- HCS CM E78.5 Hyperli pidemia , unspeci fied
with Provide r Comment s: Hyperli pidemia (SCT [id number] 4) Outpatient [id number] [place] Encounter [id number] /2021 [facility] OFFICE O/P 08559-6.61 Diagnos ADIA,NO 09/27 [place] EST MOD [id number] is: RA KIRK /2021 [facility] ICD-10- HCS CM D48.5 Neoplas m of uncerta in behavio r of skin
with Provide r Comment s: Neoplas m of uncerta in behavio r of skin Outpatient [id number] ASLTK,AG 10/01 [place] Encounter [id number] Z L /2021 [facility] Outpatient [id number] Diagnos ADIA,NO 10/02 [place] Encounter [id number] is: KIRK /2021 [facility] CM L82.1 Other seborrh eic keratos is
with Provide r Comment s: Other seborrh eic keratos is Outpatient [id number] 10/08 [place] Encounter [id number] /2021 [facility] OFFICE O/P [id number] Diagnos FERMIN,STU 11/22 [place] EST MOD [id number] is: ER S /2021 [facility] 30[facility] ICD-10- HCS CM H25.13 Age-rel ated nuclear catarac t, bilater al
with Provide r Comment s: Age-rel ated nuclear catarac t, bilater al Social History Combined list of available smoking, tobacco, and other social history [facility]. Social History Type Response Date Comment Source Tobacco smoking status VA-TOBACCO NEVER USED 07/19/2021 [facility] History of tobacco use VA-TOBACCO QUIT 15 YRS 06/08/2019 [facility] OR [facility] History of tobacco use VA-TOBACCO FORMER USER 06/17/2018 [facility] History of tobacco use LIFETIME NON-TOBACCO 06/29/2017 [facility] History of tobacco use LIFETIME NON-TOBACCO 06/25/2016 [facility] History of tobacco use LIFETIME NON-TOBACCO 06/26/2015 [facility] History of tobacco use FORMER TOBACCO USER 7Y 06/27/2014 [facility] History of tobacco use FORMER TOBACCO USER 7Y 10/01/2008 [facility] History of tobacco use FORMER TOBACCO USER 7Y 07/23/2006 [facility] Plan of Care List of future care activities from Department [facility] facilities. Additional future care activities may be listed in the Assessment and Plan section. Date/Time Care Activity Care Activity Detail Facility 05/23/2022 AMBULATORY - SURGERY AMBULATORY - SURGERY [facility] Advance Directives List of completed, amended, or rescinded Advance Directives on record at Department [facility] facilities. An actual copy of the Directive is not included. Date Advance Directive Provider Source 06/09/2016 ADVANCE DIRECTIVE ROBERT WESTFALL [facility] 06/09/2016 ADVANCE DIRECTIVE DISCUSSION ROBERT WESTFALL [facility] 07/23/2006 ADVANCE DIRECTIVE JOSSUE CANTRELL [facility]
== END 2021-12-01 09:13 | disposition home or self-care (01) ==
LOC: LAB 09:12
PROVIDERS: PCP Family Medicine; Visit Provider Orthopaedic Surgery
DX: Z01.818 Encounter for other preprocedural examination (principal)
CPT/HCPCS: 36415; 86850; 86900; 86901

== ENCOUNTER 2021-12-03 08:03 | Day surgery (SDC) | payer MEDICARE, SELFPAY ==
[2021-12-03] VITALS (22 sets, daily range): BP systolic 102–147; BP diastolic 54–81; PULSE 58–76; RESP 10–20; TEMP 35.7–36.9; O2SAT 88–99; BMI 28.5
[2021-12-03] MEDS: LACTATED RINGERS 1000 ML 1,000 ML 100 ML IV ×2 (08:45→12:42)
[2021-12-03] MEDS: SODIUM CHLORIDE 0.9 % (FLUSH) 10 ML SYRINGE IVF (08:45)
[2021-12-03] MEDS: ACETAMINOPHEN 500 MG TABLET 1000 MG PO ×3 (09:00→23:51)
[2021-12-03] MEDS: OXYCODONE (CR) 10 MG TAB.ER.12H PO (09:00)
[2021-12-03] MEDS: CELECOXIB 200 MG CAPSULE PO ×2 (09:00→20:44)
--- NOTE | 2021-12-03 10:33 | SUR.PREOP ---
TIME?OUT:? PT/RN/MDA?VERIFICATION?OF?SURGICAL?SITE,?PROCEDURE,?AND?CONSENT OBTAINED?PRIOR?TO?INVASIVE?PROCEDURE. CORRECT SITE IDENTIFIED SITE MARKED BLOCK COMPLETED BY DR JAIRO MUÑOZ
[2021-12-03] MEDS: fentaNYL 100 MCG/2 ML inj IVP (10:36)
[2021-12-03] MEDS: MIDAZOLAM HCL 1 MG/ML inj IVP (10:37)
--- NOTE | 2021-12-03 10:40 | W.PM.NB ---
Nerve Block Nerve Block Time Seen by Provider: 10:40 Date Seen: 12/03/21 Type of block requested by surgeon for post-operative analgesia: ZACHERY/LFCN Side: left Time out performed: Yes Verification of patient name: Yes Verification of date of : Yes Site marking: site marked Name of person performing procedure: Praful Continuous monitoring Was continuous monitoring of O2 sat, B/P, alarm security or surveillance monitor, recorded every 15 minutes?: Yes Procedure Checklist: sterile prep, needles and gloves Ultrasound guided. Images saved: Yes Medications given in 5ml increments after negative aspiration: Ropivicaine %: 0.5 mL: 30 Needle gauge: 20 Decadron (mg): 10 Precedex (mcg): 25 Patient tolerated procedure well: Yes Additional comments: Needle noted adjacent to nerve Block Charges Block Charge (with Pro Fee): Other Periph Nerve Block Use of Ultrasound Machine for Block: Yes- US Guidance/pain block
[2021-12-03] MEDS: CEFAZOLIN 2 GM INJ IVP (11:20)
--- NOTE | 2021-12-03 11:56 | SUR.OPER ---
Patient was transfered from Same Day Surgery to OR3. Patient was assisted to the OR table and covered with 2 warm blankets.
--- NOTE | 2021-12-03 12:55 | CRLHL7_ITS ---
For Patients: As a result of the Cures Act, medical imaging exams and procedure reports are released immediately into your electronic medical record. You may view this report before your referring provider. If you have questions, please contact your health care provider. Indication: INTRA OP LEFT HIP REVISION Technique: AP pelvis one view intra op IMPRESSION: Localization of the left acetabulum. Left hip revision hardware present. Dictated by Brendan Beavers MD @ 12/03/2021 2:34:44 PM (Electronically Signed)
--- NOTE | 2021-12-03 13:39 | CRLHL7_ITS ---
For Patients: As a result of the Cures Act, medical imaging exams and procedure reports are released immediately into your electronic medical record. You may view this report before your referring provider. If you have questions, please contact your health care provider. INDICATION: Postop TECHNIQUE: AP and frogleg views of the left hip. COMPARISONS: None available. FINDINGS: There is prior right hip arthroplasty. There is left total hip arthroplasty. There is no displaced fracture, dislocation or acute osseous abnormality. Degenerative changes of the sacroiliac joints are appreciated. There is moderate left hip soft tissue swelling and subcutaneous emphysema. IMPRESSION: Left hip soft tissue swelling and subcutaneous emphysema status post left hip arthroplasty. No evidence of immediate complication. Dictated by Malachi Taylor MD @ 12/03/2021 3:09:29 PM (Electronically Signed)
--- NOTE | 2021-12-03 13:42 | P.ORPRC_ITS ---
Procedure Note Date of procedure: 12/03/21 Procedure: SURGEON: Eddie Mason MD CHORE TENDER: ALVERTO Russell, Alannah Agee PA-C PREOPERATIVE DIAGNOSIS: Painful Left total hip arthroplasty with loose femoral component POSTOPERATIVE DIAGNOSIS: Painful Left total hip arthroplasty with loose femoral component NAME OF OPERATION: Revision left hip femoral component, poly exchange IMPLANTS: 1. Actis # 8 standard collared ingrowth stem 2. 36 + 1.5 ceramic femoral head 3. 52 mm 10 degree high wall polyethylene ANESTHESIA: General ESTIMATED BLOOD LOSS: 200 cc COMPLICATIONS: None SPECIMENS: None DRAINS: None PREOPERATIVE ANTIBIOTICS: Ancef 2 g INDICATIONS: The patient is a 76-year-old male who previously underwent left total hip arthroplasty. He has been unhappy with his postoperative result with sharp, intermittent stabbing pain in his thigh that limits his activity. This result has been far different than his successful right total hip arthroplasty. He has been worked up for infection which has been negative to date. He has been worked up for loosening and it is apparent that his stem is loose. Therefore, revision of his femoral component was offered. The risks, benefits and expected outcomes were discussed in detail. These included but were not limited to: Infection, bleeding, injury to blood vessel or nerve, venous thromboembolism. All questions were answered to their satisfaction. Use of an food and nutrition services assistant was necessary throughout the case for patient positioning and safety, soft tissue retraction and closure. PROCEDURE: General anesthesia was administered. The patient was placed in the lateral decubitus position affected hip up. They were secured to the table with the hip lacy. All bony prominences were well padded. The hip was prepped and draped in the usual sterile fashion. The previously placed longitudinal incision was utilized. Subcutaneous dissection was taken with electrocautery to the IT band. The IT band was divided in line with the incision. The [place] retractor was placed. The short external rotators and posterior capsule were divided and tagged with a #1 Ethibond suture x3. Scar deep to the capsule was excised with cautery. The hip was dislocated. The femoral head was tapped off. We exposed the shoulder of th e prosthesis with the boxing and pressing supervisor, osteotome, curette and rongeur. Flexible osteotomes were used circumferentially around the proximal aspect of the stem. We then threaded the extractor into stem and tapped it out. There was no appreciable bone loss. Attention was then turned to acetabulum. The cup was circumferentially exposed. The osteotome was used to remove the polyethylene. The screw was removed intact. We exposed central dome hole. The cup dress cutter was threaded into the cup and the stability was aggressively assessed. There was no motion through the cup and the entire pelvis was moving as a single unit. Therefore, we elected to retain the well-fixed acetabular component. A trial liner was placed. Attention was then returned to the femoral side. The # 7 and # 8 Broach were used. The 8 broach had excellent purchase. The trial neck and 1.5 mm head were placed. The hip was reduced and found to be stable with appropriate soft tissue tension. An intraoperative AP pelvis x-ray show that the stem nicely filled the canal and leg lengths were equal. The broach was removed. The trial poly was removed. We placed a 10 degree high wall liner, posterior superior. The # 8 standard offset collared Actis stem was impacted into the canal. This had excellent purchase. The 36 x 1.5 mm ceramic head was impacted onto the trunnion. The hip was reduced by the food and nutrition services assistant. Again, was found to be stable with appropriate soft tissue tension and leg lengths appear equal. We repaired the posterior capsule and short external rotators to the greater trochanter through drill holes. A 3 minute dilute Betadine solution soak was done. We irrigated the wound with 3 L of normal saline via pulse lavage. The IT band was repaired with a #1 Vicryl in an interrupted [id number] fashion distally and a running fashion proximally, by the food and nutrition services assistant. Subcutaneous tissues were reapproximated with a 2-0 Vicryl. Skin was closed with a running 3-0 Monocryl in a subcuticular fashion. Glue was used to seal the skin. A sterile dressing was applied. All done by the food and nutrition services assistant. Sponge and needle counts were correct x2. The patient tolerated the procedure well. They were turned supine and transferred to the hospital bed, taken to the postanesthesia care unit in satisfactory condition. PLAN: 1. The patient will be mobilized with physical therapy 2. Weight bear as tolerates, posterior approach precautions 3. Xarelto will be used for deep venous thrombosis prophylaxis 4. They will be discharged once medically appropriate
--- NOTE | 2021-12-03 14:09 | W.ANESCHARGE ---
Anesthesia Charges Start Date/Time Anesthesia Start Date: 12/03/21 Anesthesia Start Time: 11:00 Stop Date/Time Anesthesia Stop Date: 12/03/21 Anesthesia Stop Time: 14:11 Summary Emergency: No Extremes of Age: Over 70-CPT 40418
--- NOTE | 2021-12-03 14:21 | W.ANESCHARGE ---
Anesthesia Charges Start Date/Time Anesthesia Start Date: 12/03/21 Anesthesia Start Time: 11:00 Stop Date/Time Anesthesia Stop Date: 12/03/21 Anesthesia Stop Time: 14:11 Summary Emergency: No Extremes of Age: Over 70-CPT 03675
--- NOTE | 2021-12-03 15:43 | P.IMCN_ITS ---
Date of Consult Patient: Mary Patient Consult date: 12/03/21 Requesting Physician: Orthopedics ([place]) Primary Care Provider: Jimenez Hamilton MD Consult Narrative Reason for consult: Medical management of hypertension and hyperlipidemia Narrative: Thaddeus yAoub is a 76 year old male with severe osteoarthritis of the left hip who underwent elective left total hip arthroplasty by Dr. Mason today. He is doing well. His left leg is still completely numb from block. He denies pain. Review of Systems Status of ROS: Reports: 6 or more systems reviewed and unremarkable except as noted in History and below [facility] Medical History (Updated 12/03/21 @ 16:43 by Alannah Patel PA-C) Arthritis of lumbar spine Hyperlipidemia Hypertension Left sciatic nerve pain Osteoarthritis of left hip Spinal stenosis of lumbar region with neurogenic claudication Tendinitis of left hip Surgical History (Updated 12/03/21 @ 15:42 by Deanna Freedman MD) History of total right hip arthroplasty Hx of laminectomy S/P right knee arthroscopy Status post left hip replacement Family History (Updated 12/03/21 @ 15:42 by Deanna Freedman MD) Father Coronary artery disease Social History (Updated 12/03/21 @ 19:03 by Deanna Freedman MD) Narrative: Retired from [employer]. 4-5 alcoholic drinks per week. No tobacco or recreational drugs. Highest level of school completed/degree received: high school graduate Smoking Status: Never smoker Do you use any of these nicotine containing products: None Second hand tobacco smoke exposure: No How often do you have a drink containing alcohol: 4 or more times a week Alcohol type: beer How many standard drinks containing alcohol do you have on a typical day: 1 or 2 How often do you have six or more drinks on one occasion: Never AUDIT-C Alcohol total score: 4 Non-prescribed substance use: denies use Caffeine: No service: Yes Meds Home Medications and Allergies Home Medications Medication Instructions Recorded Confirmed Type lisinopril 20 mg tablet 20 mg PO QDAY 10/16/21 12/03/21 History simvastatin 10 mg tablet 10 mg PO QDAY 10/16/21 12/03/21 History Allergies Allergy/AdvReac Type Severity Reaction Status Date / Time No Known Allergies Allergy Verified 12/03/21 09:06 Exam Narrative: Exam Narrative: General: No acute distress. Awake alert oriented x3. HEENT: Normocephalic atraumatic, pupils equally round and reactive to light and accommodation. Oropharynx clear. Mucous membranes are moist. No cervical lymphadenopathy, thyromegaly or carotid bruits. No JVD. Cardiovascular: Regular rate and rhythm. No murmurs, gallops, or rubs. Chest: Clear to auscultation bilaterally. No crackles or wheezes. Abdomen: Bowel sounds present. Soft, nondistended, nontender. No hepatosplenomegaly or masses. Extremities: Left hip bandage is clean, dry, and intact. No edema, no cyanosis or clubbing. Skin: No jaundice, no pallor, no rashes. Const: Vital Signs, click to edit/add: Vital Signs - 24 hr 12/03/21 08:30 12/03/21 10:35 12/03/21 09:45 Temperature 97.6 F Pulse Rate 74 62 64 Respiratory Rate 20 16 14 Blood Pressure 147/79 H 138/67 111/80 Pulse Oximetry 99 97 97 Oxygen Delivery Me thod Room Air Nasal Cannula Nasal Cannula Oxygen Flow Rate 3 3 12/03/21 10:50 12/03/21 10:40 12/03/21 14:06 Temperature 98.5 F Pulse Rate 68 62 59 L Respiratory Rate 14 14 12 Blood Pressure 112/66 104/56 L 131/63 Pulse Oximetry 97 99 95 Oxygen Delivery Me thod Room Air Room Air Room Air Oxygen Flow Rate 3 12/03/21 14:10 12/03/21 14:15 12/03/21 14:20 Temperature 98.3 F Pulse Rate 58 L 64 63 Respiratory Rate 14 10 L 12 Blood Pressure 102/77 122/70 118/67 Pulse Oximetry 96 96 94 Oxygen Delivery Me thod Room Air Nasal Cannula Nasal Cannula Oxygen Flow Rate 3 3 12/03/21 14:25 12/03/21 14:30 12/03/21 14:36 Temperature 98.2 F Pulse Rate 61 61 61 Respiratory Rate 12 14 12 Blood Pressure 113/62 111/57 L 115/54 L Pulse Oximetry 95 96 95 Oxygen Delivery Me thod Nasal Cannula OxyMask OxyMask Oxygen Flow Rate 3 3 3 Documenting provider has reviewed patient's vital signs: yes Imaging hip and pelvis x-ray: Attestation: I have reviewed the pertinent imaging results. Radiologist's impression: Ordering Physician: Eddie Mason M.D. Date of Service: 12/03/21 Procedure(s): XR pelvis 1-2V Accession Number(s): [id number] cc: Eddie Mason M.D.; Jimenez Hamilton M.D.~ For Patients: As a result of the Cures Act, medical imaging exams and procedure reports are released immediately into your electronic medical record. You may view this report before your referring provider. If you have questions, please contact your health care provider. Indication: INTRA OP LEFT HIP REVISION Technique: AP pelvis one view intra op IMPRESSION: Localization of the left acetabulum. Left hip revision hardware present. Dictated by Brendan Beavers MD @ 12/03/2021 2:34:44 PM (Electronically Signed) Ordering Physician: Eddie Mason M.D. Date of Service: 12/03/21 Procedure(s): XR hip LT post op Accession Number(s): [id number] cc: Eddie Mason M.D.; Jimenez Hamilton M.D.~ For Patients: As a result of the Cures Act, medical imaging exams and procedure reports are released immediately into your electronic medical record. You may view this report before your referring provider. If you have questions, please contact your health care provider. INDICATION: Postop TECHNIQUE: AP and frogleg views of the left hip. COMPARISONS: None available. FINDINGS: There is prior right hip arthroplasty. There is left total hip arthroplasty. There is no displaced fracture, dislocation or acute osseous abnormality. Degenerative changes of the sacroiliac joints are appreciated. There is moderate left hip soft tissue swelling and subcutaneous emphysema. IMPRESSION: Left hip soft tissue swelling and subcutaneous emphysema status post left hip arthroplasty. No evidence of immediate complication. Dictated by Malachi Taylor MD @ 12/03/2021 3:09:29 PM (Electronically Signed) Assessment and Plan Assessment and plan (1) Status post left hip replacement: Problem comment: 12/03/2021 Status: Acute Assessment and Plan: Pain control adequate. Routine post SHELLY prophylaxis with Xarelto for 5 days then twice a day aspirin. PT and OT. Cares per Ortho. (2) Osteoarthritis of left hip: Status: Chronic (3) Hypertension: Status: Chronic Assessment and Plan: Hold home lisinopril tomorrow morning, will likely be able to restarted the next day. (4) Hyperlipidemia: Status: Chronic Assessment and Plan: Continue simvastatin.
[2021-12-03] MEDS: CEFAZOLIN 2 GM in 0.9 % SODIUM CHLORIDE Mini-bag 100 ML IVPB (17:41)
[2021-12-03] MEDS: SIMVASTATIN 10 MG TABLET PO (20:44)
[2021-12-03] MEDS: SENNOSIDES 1 TAB TABLET 2 TAB PO (20:44)
--- NOTE | 2021-12-03 22:56 | PC.NURSE ---
19-23: A x 2 with gb and walker to stand at bedside to use urinal, pt states his left leg is still very numb. No c/o pain. No n/v. Scheduled Tylenol given. 94-97% O2 on RA. VSS. Active ice to left hip, dressing CDI.
[2021-12-04 00:32] VITALS: BP 119/75; PULSE 71; RESP 16; TEMP 36.6; O2SAT 95
[2021-12-04] MEDS: CEFAZOLIN 2 GM in 0.9 % SODIUM CHLORIDE Mini-bag 100 ML IVPB ×2 (02:09→10:23)
[2021-12-04 04:00] VITALS: BP 127/67; PULSE 71; RESP 16; TEMP 36.7; O2SAT 96
[2021-12-04] MEDS: ACETAMINOPHEN 500 MG TABLET 1000 MG PO (05:33)
--- NOTE | 2021-12-04 06:41 | PC.NURSE ---
Shift Note : Pt pleasant and cooperative, VSS, afebrile, LS clear. PIV asymptomatic and intact, SL. PT up with SBA, W & GB. Pt reports 0/10 pain, see eMAR for medication administration. Active ice in place.
[2021-12-04 06:54] LABS: Basophils Percent Auto 0.1 % (0.0-3.0); Hematocrit 32.5 % (37.0-53.0); Hemoglobin* 11.4 gm/dL (13.5-17.5); Immature Granulocytes Abs Auto 0.03 K/uL (0.00-0.30); Mean Corpuscular HGB Conc 35 gm/dL (32-36); Mean Corpuscular Hemoglobin 34 pg (26-34); Mean Corpuscular Volume 97 fL (80-100); Monocytes Percent Auto 5.8 % (0.0-11.0); Neutrophils Percent Auto 86.9 % (42.0-72.0); Platelet Count* 64 K/uL (140-440); RDW Coefficient of Variation % 12.3 % (11.5-15.5); Red Blood Count 3.36 m/uL (4.30-5.90); White Blood Count* 13.16 K/uL (4.50-11.00)
[2021-12-04 06:58] LABS: Slide Review Reflex No
[2021-12-04 07:02] LABS: Sodium* 136 mmol/L (135-149)
[2021-12-04 07:03] LABS: Potassium* 4.2 mmol/L (3.6-5.1)
[2021-12-04 07:05] LABS: Est. Creatinine Clearance* 60.88; Estimated Glomerular Filt Rate 77 ml/min
[2021-12-04 07:06] LABS: Blood Urea Nitrogen* 20 mg/dL (7-30)
[2021-12-04 08:00] VITALS: BP 130/69; PULSE 70; RESP 16; TEMP 37; O2SAT 96
[2021-12-04] MEDS: CELECOXIB 200 MG CAPSULE PO (08:21)
[2021-12-04] MEDS: OXYCODONE 5 MG TABLET PO (08:22)
[2021-12-04] MEDS: SENNOSIDES 1 TAB TABLET 2 TAB PO (08:22)
[2021-12-04] MEDS: RIVAROXABAN 10 MG TABLET PO (08:22)
--- NOTE | 2021-12-04 09:38 | P.ORPN_ITS ---
Subjective Subjective Time Seen by Provider: 07:30 Date Seen: 12/04/21 Principal diagnosis: Status post revision left total hip arthroplasty Interval history: Thaddeus is comfortable at rest this morning. He got minimal sleep. He describes prior to surgery not being able to reach down to pick anything up off the floor or put a golf karyn in the ground. He is hopeful this will improve now after his surgery yesterday. Ortho Exam Narrative Exam Narrative: Alert and oriented x3. Patient is in no acute distress. Converses without labored breathing. Hearing is grossly intact. Examination of the left hip shows the dressing is in place. Mild soft tissue edema about the hip. No ecchymosis. Erythema is present where the ice pack has been located. The skin is cold in this area. CMS is intact left lower extremity. Bilateral calves are soft and nontender. Const Vital Signs, click to edit/add: Vital Signs - 24 hr 12/03/21 10:35 12/03/21 09:45 12/03/21 10:50 Temperature Pulse Rate 62 64 68 Pulse Rate [Apical] Respiratory Rate 16 14 14 Blood Pressure 138/67 111/80 112/66 Blood Pressure [Left Arm] Pulse Oximetry 97 97 97 Oxygen Delivery Method Nasal Cannula Nasal Cannula Room Air Oxygen Flow Rate 3 3 3 12/03/21 10:40 12/03/21 14:06 12/03/21 14:10 Temperature 98.5 F Pulse Rate 62 59 L 58 L Pulse Rate [Apical] Respiratory Rate 14 12 14 Blood Pressure 104/56 L 131/63 102/77 Blood Pressure [Left Arm] Pulse Oximetry 99 95 96 Oxygen Delivery Method Room Air Room Air Room Air Oxygen Flow Rate 12/03/21 14:15 12/03/21 14:20 12/03/21 14:25 Temperature 98.3 F Pulse Rate 64 63 61 Pulse Rate [Apical] Respiratory Rate 10 L 12 12 Blood Pressure 122/70 118/67 113/62 Blood Pressure [Left Arm] Pulse Oximetry 96 94 95 Oxygen Delivery Method Nasal Cannula Nasal Cannula Nasal Cannula Oxygen Flow Rate 3 3 3 12/03/21 14:30 12/03/21 14:36 12/03/21 14:45 Temperature 98.2 F 96.5 F L Pulse Rate 61 61 69 Pulse Rate [Apical] Respiratory Rate 14 12 16 Blood Pressure 111/57 L 115/54 L Blood Pressure [Left Arm] 120/65 Pulse Oximetry 96 95 Oxygen Delivery Method OxyMask OxyMask Room Air OxyMask Oxygen Flow Rate 3 3 12/03/21 15:00 12/03/21 15:15 12/03/21 15:30 Temperature 96.7 F L 96.5 F L 96.3 F L Pulse Rate Pulse Rate [Apical] 65 66 70 Respiratory Rate 16 16 16 Blood Pressure Blood Pressure [Left Arm] 121/65 109/59 L 125/66 Pulse Oximetry 95 95 95 Oxygen Delivery Method Nasal Cannula OxyMask Nasal Cannula OxyMask Nasal Cannula OxyMask Oxygen Flow Rate 2 2 2 12/03/21 15:45 12/03/21 16:15 12/03/21 16:45 Temperature 96.9 F L Pulse Rate Pulse Rate [Apical] 67 69 69 Respiratory Rate 16 16 16 Blood Pressure Blood Pressure [Left Arm] 112/67 119/73 127/75 Pulse Oximetry 96 95 96 Oxygen Delivery Method Nasal Cannula OxyMask Nasal Cannula OxyMask Nasal Cannula OxyMask Oxygen Flow Rate 2 2 2 12/03/21 17:15 12/03/21 18:00 12/03/21 19:15 Temperature 97.1 F L 97.3 F L 97.8 F Pulse Rate Pulse Rate [Apical] 76 69 71 Respiratory Rate 16 16 16 Blood Pressure Blood Pressure [Left Arm] 130/81 111/57 L 123/71 Pulse Oximetry 95 96 94 Oxygen Delivery Method Room Air OxyMask Room Air OxyMask Room Air OxyMask Oxygen Flow Rate 12/04/21 00:32 12/04/21 04:00 Temperature 97.8 F 98.0 F Pulse Rate Pulse Rate [Apical] 71 71 Respiratory Rate 16 16 Blood Pressure Blood Pressure [Left Arm] 119/75 127/67 Pulse Oximetry 95 96 Oxygen Delivery Method Room Air Room Air Oxygen Flow Rate Assessment and Plan Assessment and plan (1) Status post left hip replacement: Problem details: 12/03/2021 Status: Acute Assessment and Plan: Plan for discharge is today to home if they meet discharge criteria. DVT prophylaxis includes Xarelto 10 mg daily for total of 5 days, then aspirin 81 mg twice daily for 30 days, Dell stockings x1 month may remove for 1 hr per day, frequent ambulation Remove dressing 1 week. Observe wound and phone Orthopedics with any questions or concerns Use Ice on operative hip unrestricted. Return to clinic in 1 week with PA for a wound check Return to clinic in [address] Mason Minimize narcotic use. Wean off and discontinue soon as possible. No strenuous activity. Attend outpt PT Posterior hip precautions left hip. We discussed his difficulty with bending over at the waist and picking things up. We discussed that there was a lot of scar tissue surrounding the joint which certainly could have made it difficult to bend over at the waist. This was we debrided. We discussed surgical findings and surgical procedure at length. His previous left hip surgery was performed at [facility] about 1 year ago, posterior approach at that time as well. (2) Osteoarthritis of left hip: Status: Chronic (3) Hypertension: Status: Chronic (4) Hyperlipidemia: Status: Chronic
--- NOTE | 2021-12-04 09:54 | P.DS_ITS ---
DS: Providers Provider Date Seen: 12/04/21 Primary care physician: Jimenez Hamilton MD Attending Physician on discharge: Eddie Mason MD Date of Discharge: 12/04/21 DS: Diagnosis Discharge Diagnosis (1) Hypertension: Status: Chronic (2) Osteoarthritis of left hip: Status: Chronic (3) Status post left hip replacement: Status: Acute Problem details: 12/03/2021 DS: Summary Hospital Course Hospital Course: 68-year-old male admitted to the hospital for left total hip arthroplasty revision. Procedures performed by Dr. Mason on the day of admission. There were no operative complications. Postoperatively he has done well. He has had no medical complications. Pain is adequately controlled. Today he reports tolerating ambulation. No nausea or dyspnea or fever. Status at Discharge Functional status at discharge: uses cane/walker Overall status at discharge: patient is back to baseline Time Spent with Patient Time attestation: Total time spent providing and/or coordinating discharge services: Time spent: Less than 30 minutes Exam Narrative: Exam Narrative: He is alert in no distress. Respirations are unlabored. No significant edema. He walks well with a walker. Const: Vital Signs, click to edit/add: Vital Signs - 24 hr 12/03/21 10:35 12/03/21 10:50 12/03/21 10:40 Temperature Pulse Rate 62 68 62 Pulse Rate [Apical ] Respiratory Rate 16 14 14 Blood Pressure 138/67 112/66 104/56 L Blood Pressure [Le ft Arm] Pulse Oximetry 97 97 99 Oxygen Delivery Me thod Nasal Cannula Room Air Room Air Oxygen Flow Rate 3 3 12/03/21 14:06 12/03/21 14:10 12/03/21 14:15 Temperature 98.5 F Pulse Rate 59 L 58 L 64 Pulse Rate [Apical ] Respiratory Rate 12 14 10 L Blood Pressure 131/63 102/77 122/70 Blood Pressure [Le ft Arm] Pulse Oximetry 95 96 96 Oxygen Delivery Me thod Room Air Room Air Nasal Cannula Oxygen Flow Rate 3 12/03/21 14:20 12/03/21 14:25 12/03/21 14:30 Temperature 98.3 F Pulse Rate 63 61 61 Pulse Rate [Apical ] Respiratory Rate 12 12 14 Blood Pressure 118/67 113/62 111/57 L Blood Pressure [Le ft Arm] Pulse Oximetry 94 95 96 Oxygen Delivery Me thod Nasal Cannula Nasal Cannula OxyMask Oxygen Flow Rate 3 3 3 12/03/21 14:36 12/03/21 14:45 12/03/21 15:00 Temperature 98.2 F 96.5 F L 96.7 F L Pulse Rate 61 69 Pulse Rate [Apical ] 65 Respiratory Rate 12 16 16 Blood Pressure 115/54 L Blood Pressure [Le ft Arm] 120/65 121/65 Pulse Oximetry 95 95 Oxygen Delivery Me thod OxyMask Room Air OxyMask Nasal Cannula OxyM ask Oxygen Flow Rate 3 2 12/03/21 15:15 12/03/21 15:30 12/03/21 15:45 Temperature 96.5 F L 96.3 F L Pulse Rate Pulse Rate [Apical ] 66 70 67 Respiratory Rate 16 16 16 Blood Pressure Blood Pressure [Le ft Arm] 109/59 L 125/66 112/67 Pulse Oximetry 95 95 96 Oxygen Delivery Me thod Nasal Cannula OxyM ask Nasal Cannula OxyM ask Nasal Cannula OxyM ask Oxygen Flow Rate 2 2 2 12/03/21 16:15 12/03/21 16:45 12/03/21 17:15 Temperature 96.9 F L 97.1 F L Pulse Rate Pulse Rate [Apical ] 69 69 76 Respiratory Rate 16 16 16 Blood Pressure Blood Pressure [Le ft Arm] 119/73 127/75 130/81 Pulse Oximetry 95 96 95 Oxygen Delivery Me thod Nasal Cannula OxyM ask Nasal Cannula OxyM ask Room Air OxyMask Oxygen Flow Rate 2 2 12/03/21 18:00 12/03/21 19:15 12/04/21 00:32 Temperature 97.3 F L 97.8 F 97.8 F Pulse Rate Pulse Rate [Apical ] 69 71 71 Respiratory Rate 16 16 16 Blood Pressure Blood Pressure [Le ft Arm] 111/57 L 123/71 119/75 Pulse Oximetry 96 94 95 Oxygen Delivery Me thod Room Air OxyMask Room Air OxyMask Room Air Oxygen Flow Rate 12/04/21 04:00 Temperature 98.0 F Pulse Rate Pulse Rate [Apical ] 71 Respiratory Rate 16 Blood Pressure Blood Pressure [Le ft Arm] 127/67 Pulse Oximetry 96 Oxygen Delivery Me thod Room Air Oxygen Flow Rate Documenting provider has reviewed patient's vital signs: yes DS: Data Data Completed and Pending Labs on day of discharge: Labs from last 24 hours 12/04/21 12/04/21 06:00 06:00 WBC 13.16 H RBC 3.36 L Hgb 11.4 L Hct 32.5 L MCV 97 MCH 34 MCHC 35 RDW Coeff of Lynnette 12.3 Plt Count 64 L Neut % (Auto) 86.9 H Lymph % (Auto) 7.0 L [place] % (Auto) 5.8 Eos % (Auto) 0.0 Baso % (Auto) 0.1 Neut # (Auto) 11.40 H Lymph # (Auto) 0.90 [place] # (Auto) 0.80 Eos # (Auto) 0.00 Baso # (Auto) 0.00 Abs Immat Gran (auto) 0.03 Sodium 136 Potassium 4.2 BUN 20 Creatinine 1.0 Estimated Creat Clear 60.88 Estimated GFR 77 Discharge Plan Discharge Disposition: Home, Self-Care Discharging Surgeon: Eddie Mason Follow-Up Appointment: One week Prescriptions: New acetaminophen 500 mg Tablet 500 - 1,000 mg PO Q6H PRNQty: 100 0RF oxycodone 5 mg Tablet 2.5 - 5 mg PO Q4-6H MDD 6 tabs per day PRN (Reason: Pain) Qty: 42 0RF Rx Instructions: Minimize. Discontinue as soon as possible sennosides [Senna Lax] 8.6 mg Tablet 2 tab PO BID PRNQty: 100 0RF Xarelto 10 mg Tablet 10 mg PO DAILY 4 Days Qty: 4 0RF Rx Instructions: for DVT prophylaxis. Take this medication daily for 4 days, then Aspirin 81mg twice daily for 30 days aspirin [Aspirin Childrens] 81 mg tablet,chewable 81 mg PO BID 30 Days Qty: 60 0RF Continued lisinopril 20 mg tablet 20 mg PO QDAY simvastatin 10 mg tablet 10 mg PO QDAY Activity Level: Activity as Tolerated and No strenuous activity Activity Detail: Keep dressing on for 1 week. Dressing is waterproof. May shower. Surgical glue covers the wound. Attend outpatient physical therapy if scheduled. Ice operative extremity without restriction. Wear compression stockings for 1 month post surgery. May remove for 1 hour per day. Ambulate every hour throughout the day. Do not drive while taking narcotic pain medication. Do not drink alcohol while taking narcotic pain medication. May drive when safe to do so and have full function of the extremities, this may take 6 weeks or more. Notify Orthopedics with any questions or concerns. ([phone]) Discharge Diet: Regular Patient Instructions: Acetaminophen (By mouth), Aspirin (By mouth), Oxycodone, Rapid Release (By mouth), Rivaroxaban (By mouth), Senna (By mouth), Surgical Site Infections (DC), Anterior Hip Replacement (DC) Forms: Work/Release Restrictions Follow-up: Alannah Patel PACollinC [Physician Steel Division Supervisor] - 12/11/21 9:30 am ([facility]) Jimenez Hamilton MD [Primary Care Provider] - (Set up appointment as needed.) Discharge Orders: Discharge Order (Routine); Ordered 12/04/21 Ordered By: Austin Rizvi
--- NOTE | 2021-12-04 13:14 | PC.NURSE ---
VSS AND AFEBRILE. LS CLEAR. BS ACTIVE AND PASSING GAS. TOLERATING REGULAR DIET WITH NO C/O N/V. DRESSING TO LEFT HIP CDI. PAIN CONTROLLED WITH SCHEDULED TYLENOL AND PRN OXYCODONE. SL DC'D. REVIEWED DC INSTRUCTIONS WITH PATIENT AND HIS . PATIENT DC'D HOME VIA AND ACTIVE ICE PACKS x2 SENT WITH PATIENT.
== END 2021-12-04 11:58 | disposition home or self-care (01) ==
LOC: OR 08:04 → MEDSURG 08:09
PROVIDERS: PCP Family Medicine; Visit Provider Orthopaedic Surgery
PROC: (CPT 27138; principal; 2021-12-03 10:30)
DX: T84.031A Mechanical loosening of internal left hip prosthetic joint, initial encounter (principal); T84.84XA Pain due to internal orthopedic prosthetic devices, implants and grafts, initial encounter; I10 Essential (primary) hypertension; M25.552 Pain in left hip; G89.29 Other chronic pain; Z96.642 Presence of left artificial hip joint; M48.062 Spinal stenosis, lumbar region with neurogenic claudication; E78.5 Hyperlipidemia, unspecified
CPT/HCPCS: 27138; 01214; 36415; 64450; 72170; 73501; 76942; 82565; 84132; 84295; 84520; 85025; 97110; 97116; 97161; 97165; 97535; 99100; A9270; C1776; J0330; J0690; J1100; J1170; J2250; J2405; J2704; J2710; J2795; J3010; J7120

== ENCOUNTER 2023-02-10 08:55 | Outpatient (CLI) | payer MEDICARE, SELFPAY ==
--- OUTSIDE RECORDS SUMMARY | 2023-02-10 08:57 | XMS_ITS | Continuity of Care Document ---
Author Name Unknown Organization [facility] Address [address] [place] [address] Phone Care Team Providers Care Ground Hand Name Role Phone Afshan VILLAGRAN, PhD, Mike Unavailable Unavai lable Allergies, Adverse Reactions, Alerts Substance Reaction Status Criticality No Known Allergies Active No Inform ation Medications Medication Instructions Dosage Effective Dates (start - stop) Status Comments LISINOPRIL-HYDROCHLORO THIAZIDE (unknown strength) Not Available - Active SIMVASTATIN (unknown strength) Not Available - Active Procedures Procedure Date OFFICE/OUTPATIENT VISIT EST Phone Postop Followup Visit Lami, Facetectomy/Foraminotomy, Lumbar ( Stenosis) Lami, Facetectomy/Foraminotomy, Lumbar ( Stenosis) Office/Outpatient Visit,[facility] 2021 Advance Directives Directive Yes / No Effective Date File Name No Information Encounters Encounter Description Practice Location Reason(s) For Visit Diagnoses Date Provider Providers Copied on Encounter [facility], [address], [place], [id number], [place] tel:[phone] [facility] - [facility] [place] No Information Afshan Mckeon. [facility], [address], [place], [address], [place]. tel:[phone] OFFICE/OUTPAT IENT VISIT EST Phone [facility], [address], [place], [id number], [place] tel:[phone] [facility] No Information Afshan Mckeon. [facility], [address], [place], [address], [place]. tel:[phone] Referring Provider: Walt Roach, [id number], [address] . tel:[phone] [facility], [address], [place], [id number], [place] tel:[phone] [facility] Encounter for other specified surgical aftercare Alex Garza. [facility] [place], [address], [facility] [place], [id number] , [place]. [phone] Referring Provider: Walt Roach, [email or web address], [address] . tel:[phone] [facility], [address], [place], [place], [id number], [place] tel:[phone] [facility] No Information Alex Garza. [facility], [address], [facility] [place], [id number] , [place]. [phone] Referring Provider: Walt Roach, [facility] [address] [place] [address], [address] . tel:[phone] [facility], [address], [place], [place], [id number], [place] tel:[phone] [facility] No Information Afshan Mckeon. [facility] [place], [address], [place], [address], [place]. tel:[phone] Referring Provider: Walt Roach, [facility] [address], [address] . tel:[phone] Office/Outpat ient Visit,[place], [place] [facility], [address], [place], [id number], [place] tel:[phone] [facility] - [place] Spinal stenosis, lumbar region with neurogenic claudication Afhsan Mckeon. [facility], [address], [address], [place]. tel:[phone] Referring Provider: Walt Roach, [address], [address] . tel:[phone] Family History Family Member Type Diagnosis Age At Onset No Information Payers Payer name Insurance type Covered republican ID Authoriza tivale(s) [employer] [place] 2021 CI [id number] Social History Type Description Quantity Date Captured Comments Sex Male Smoking Status No Information Chief Complaint And Reason For Visit No Information Reason For Referral Reason For Referral No Information History Of Present Illness Encounter Date Complaint History Of Prese nt Illness No Information Functional Status Date Functional Assessmen t No Information Instructions Date Instruction Additional Infor mation No Information Assessments Type Assessment Date No Information Patient Care Teams Name Effective Dates (start - stop) Status Members No Information
== END 2023-02-10 08:56 | disposition home or self-care (01) ==
PROVIDERS: PCP Family Medicine; Visit Provider Family Medicine
DX: M54.16 Radiculopathy, lumbar region (principal)
CPT/HCPCS: 64483; J1100; Q9966

== ENCOUNTER 2023-09-15 06:38 | Outpatient (CLI) | payer MEDICARE, SELFPAY ==
--- OUTSIDE RECORDS SUMMARY | 2023-09-15 06:40 | XMS_ITS | Continuity of Care Document ---
Author Name [facility] Organization [facility] Care Team Providers Care Pv Design And Installation Technician Name Role Phone [facility] Unavailable Unavailable Problems Combined list of problems from Department of Defense and Veterans Affairs facilities. It does not include entries that were removed or entered in error. Problem Status Onset Date Problem Type Date of Resolution Comments Source Basal Cell Carcinoma of Skin (SCT 402006706) Active Condition [place] [facility] Hyperlipidemia (SNOMED CT 08620002) Active Condition [facility] Hypertensive disorder Active Condition [facility] Osteoarthritis Active Condition May 292015 Entered By: DAVID CARCAMO Comment: S/P right total hip in 2008. [facility] Polyp of colon Active Condition Jun 282017 Entered By: JOI ROLDAN Comment: last colonoscopy 2018 next rec 2026 [facility] Sensorineural Hearing Loss Active Condition [facility] Colonoscopy normal Inactive Condition 07/10/2017 Nov 12, 2016 Entered By: JOI ROLDAN Comment: 2016 ( + FIT test) , next colonoscopy rec 2026 [facility] Impaired FASTING Glucose Inactive Condition 07/23/2021 Jun 27, 2014 Entered By: JOI ROLDAN Comment: 2014 Hgb A1c 5.8 [facility] left buttock pain with exertion, resolves with rest Inactive Condition 07/23/2021 Jun 17, 2018 Entered By: DAVID RODRIGUEZ Comment: 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, MRI of lumbar spine ordered 2018 Entered By: DAVID RODRIGUEZ Comment: if MRI shows no cause, consider ABIs, [facility] right foot weakness, unclear etiology Inactive Condition 07/23/2021 Jun 17, 2018 Entered By: DAVID RODRIGUEZ Comment: MRI lumbar spine ordered 05/2018 [facility] right palm callus versus early Peyronie's Inactive Condition 07/23/2021 Jun 17, 2018 Entered By: DAVID RODRIGUEZ Comment: 05/2018, continue to monitor, asymptomatic [facility] Diagnosis: ICD-10-CM H40.053 Ocular hypertension, bilateral Active Diagnosis [facility] Diagnosis: ICD-10-CM Z85.828 Personal history of other malignant neoplasm of skin Active Diagnosis [facility] Diagnosis: ICD-10-CM H40.003 Preglaucoma, unspecified, bilateral Active Diagnosis [facility] Medications Combined list of outpatient medications from Department of [facility] and Veterans Affairs facilities.Medications provided include 1) outpatient medications from the last 15 months, and 2) patient-reported medications. Medication Details Route Status Patient Instructions Prescription Expires Prescription Number Last Dispense Date Ordering Provider Order Date Order Qty Source HYDROCHLORO THIAZIDE 12.5MG/TOY NOPRIL 10MG TAB TAKE ONE TABLET BY MOUTH EVERY MORNING ORALLY ACTIVE Jennifer ROLDAN 2011 [facility] SIMVASTATIN 80MG TAB TAKE ONE-HALF TABLET BY MOUTH DAILY ORALLY 06/04/2023 [id number] 3 MELODY MOREAU 2022 45 [facility] Immunizations Combined list of available immunizations from the Department of [facility] and Veterans Affairs facilities. Immunization Series Date Given Administered By Site Reaction Lot Number CVX Code Drug Retail Cashier Status Comments Source INFLUENZA, UNSPECIFIED FORMULATION 2020 88 complet ed [facility] COVID-19 (PFIZER), MRNA, LNP-S, PF, 30 MCG/0.3 ML DOSE 2 2020 208 complet ed [facility] COVID-19 (PFIZER), MRNA, LNP-S, PF, 30 MCG/0.3 ML DOSE 1 2020 208 complet ed [facility] INFLUENZA, HIGH DOSE SEASONAL 2018 135 complet ed [facility] ZOSTER RECOMBINANT 2 2018 187 complet ed [facility] ZOSTER RECOMBINANT 1 2018 187 complet ed [facility] INFLUENZA, SEASONAL, INJECTABLE 2017 141 complet ed [facility] INFLUENZA, HIGH DOSE SEASONAL 2016 135 complet ed [facility] INFLUENZA, HIGH DOSE SEASONAL 2015 135 complet ed [facility] PNEUMOCOCCAL CONJUGATE PCV 13 2015 133 complet ed Cole Marroquin 194,08/13 [facility] INFLUENZA, SEASONAL, INJECTABLE 2014 141 complet ed [facility] INFLUENZA, SEASONAL, INJECTABLE 2013 141 complet ed [facility] INFLUENZA, UNSPECIFIED FORMULATION 2012 88 complet ed [facility] TDAP 2012 115 complet ed glaxo rich reyes, [id number] A, 06/18/14 [facility] ZOSTER LIVE 2012 121 complet ed [employer], [id number], [id number] [facility] INFLUENZA, UNSPECIFIED FORMULATION 2011 88 complet ed [facility] INFLUENZA, UNSPECIFIED FORMULATION 2010 88 complet ed [facility] INFLUENZA, UNSPECIFIED FORMULATION 2009 88 complet ed [facility] NOVEL INFLUENZA-H1N 1-09, ALL FORMULATIONS 2008 128 complet ed [facility] PNEUMOCOCCAL, UNSPECIFIED FORMULATION 2008 109 complet ed maría ribeiro 1314y,5/0 11/07 [facility] INFLUENZA, UNSPECIFIED FORMULATION 2008 88 complet ed [facility] TD(ADULT) UNSPECIFIED FORMULATION 2002 139 complet ed outside provider [facility] Results Combined list of recent chemistry, hematology and other laboratory results from Department of Defense and Veterans Affairs, ranging from 15 months to all on record, depending upon the facility. Order Name Results Value Reference Range Date Interpretation Specimen Comments Source HEMOGLOB IN A1C HEMOGLOBIN A1C/HEMOGL OBIN.TOTAL IN BLOOD 6.0 4.0 - 6.0 07/19 Specimen Type: BLOOD No comment entered. Ordering Provider: ROSE MOREAU Report Released Date/Time: Jul 19, 2021 10:29 AM Reporting Lab: [facility] [address] Performing Lab: [facility] [address] [facility] ANTI-HEP C(EIA) HEPATITIS C VIRUS AB [PRESENCE] IN SERUM NEGATIVE 07/19 Specimen Type: SERUM No comment entered. Ordering Provider: ROSE MOREAU Report Released Date/Time: Jul 19, 2021 10:34 AM Reporting Lab: [facility] [address] Performing Lab: [facility] [address] [place] [facility] BASIC METABOLI C PANEL+MG CREATININE [MASS/VOLU ME] IN SERUM OR PLASMA 1.1 0.7 - 1.2 07/19 Specimen Type: PLASMA No comment entered. Ordering Provider: ROSE MOREAU Report Released Date/Time: Jul 19, 2021 10:29 AM Reporting Lab: [facility] [address] Performing Lab: [facility] [address] [place] [facility] BASIC METABOLI C PANEL+MG UREA NITROGEN [MASS/VOLU ME] IN SERUM OR PLASMA 21 8 - 07/19 Specimen Type: PLASMA No comment entered. Ordering Provider: ROSE MOREAU Report Released Date/Time: Jul 19, 2021 10:29 AM Reporting Lab: [facility] [phone] Performing Lab: [facility] [address] [place] [facility] BASIC METABOLI C PANEL+MG GLUCOSE [MASS/VOLU ME] IN SERUM OR PLASMA 115 74 - 100 07/19 H Specimen Type: PLASMA No comment entered. Ordering Provider: ROSE MOREAU Report Released Date/Time: Jul 19, 2021 10:29 AM Reporting Lab: [facility] [address] Performing Lab: [facility] [address] [place] [facility] BASIC METABOLI C PANEL+MG SODIUM [MOLES/VOL UME] IN SERUM OR PLASMA 137 136 - 145 07/19 Specimen Type: PLASMA No comment entered. Ordering Provider: ROSE MOREAU Report Released Date/Time: Jul 19, 2021 10:29 AM Reporting Lab: [facility] [address] Performing Lab: [facility] [address] [place] [facility] BASIC METABOLI C PANEL+MG POTASSIUM [MOLES/VOL UME] IN SERUM OR PLASMA 4.1 3.5 - 5.1 07/19 Specimen Type: PLASMA No comment entered. Ordering Provider: ROSE MOREAU Report Released Date/Time: Jul 19, 2021 10:29 AM Reporting Lab: [facility] [address] Performing Lab: [facility] [address] [place] [facility] BASIC METABOLI C PANEL+MG CHLORIDE [MOLES/VOL UME] IN SERUM OR PLASMA 104 98 - 107 07/19 Specimen Type: PLASMA No comment entered. Ordering Provider: ROSE MOREAU Report Released Date/Time: Jul 19, 2021 10:29 AM Reporting Lab: [facility] [address] Performing Lab: [facility] [address] [place] [facility] BASIC METABOLI C PANEL+MG CARBON DIOXIDE, TOTAL [MOLES/VOL UME] IN SERUM OR PLASMA - 07/19 Specimen Type: PLASMA No comment entered. Ordering Provider: ROSE MOREAU Report Released Date/Time: Jul 19, 2021 10:29 AM Reporting Lab: [facility] [address] Performing Lab: [facility] [address] [place] [facility] BASIC METABOLI C PANEL+MG CALCIUM [MASS/VOLU ME] IN SERUM OR PLASMA 9.8 8.4 - 10.2 07/19 Specimen Type: PLASMA No comment entered. Ordering Provider: ROSE MOREAU Report Released Date/Time: Jul 19, 2021 10:29 AM Reporting Lab: [facility] [address] Performing Lab: [facility] [address] [place] [facility] BASIC METABOLI C PANEL+MG MAGNESIUM [MASS/VOLU ME] IN SERUM OR PLASMA 1.9 1.6 - 2.6 07/19 Specimen Type: PLASMA No comment entered. Ordering Provider: ROSE MOREAU Report Released Date/Time: Jul 19, 2021 10:29 AM Reporting Lab: [facility] [address] Performing Lab: [facility] [address] [place] [facility] BASIC METABOLI C PANEL+MG ANION GAP IN SERUM OR PLASMA 8 5 - 15 07/19 Specimen Type: PLASMA No comment entered. Ordering Provider: ROSE MOREAU Report Released Date/Time: Jul 19, 2021 10:29 AM Reporting Lab: [facility] [address] Performing Lab: [facility] [address] [place] [facility] BASIC METABOLI C PANEL+MG CREAT EGFR(CKD-E PI) 69 60 07/19 Specimen Type: PLASMA No comment entered. Ordering Provider: ROSE MOREAU Report Released Date/Time: Jul 19, 2021 10:29 AM Reporting Lab: [facility] [address] Performing Lab: [facility] [address] [place] [facility] LIPID PANEL,NO N-FASTIN G CHOLESTERO L [MASS/VOLU ME] IN SERUM OR PLASMA 172 <199 - 199 07/19 Specimen Type: PLASMA No comment entered. Ordering Provider: ROSE MOREAU Report Released Date/Time: Jul 19, 2021 10:29 AM Reporting Lab: [facility] [address] Performing Lab: [facility] [address] [place] [facility] LIPID PANEL,NO N-FASTIN G CHOLESTERO L IN HDL [MASS/VOLU ME] IN SERUM OR PLASMA 42 40 07/19 Specimen Type: PLASMA No comment entered. Ordering Provider: ROSE MOREAU Report Released Date/Time: Jul 19, 2021 10:29 AM Reporting Lab: [facility] [phone] Performing Lab: [facility] [address] [place] [facility] LIPID PANEL,NO N-FASTIN G CHOLESTERO L IN LDL [MASS/VOLU ME] IN SERUM OR PLASMA BY CALCULAVERNAO N 94 <99 - 99 07/19 Specimen Type: PLASMA No comment entered. Ordering Provider: ROSE MOREAU Report Released Date/Time: Jul 19, 2021 10:29 AM Reporting Lab: [facility] [address] Performing Lab: [facility] [address] [place] [facility] LIPID PANEL,NO N-FASTIN G CHOLESTERO L IN VLDL [MASS/VOLU ME] IN SERUM OR PLASMA BY CALCULATIO N 36 <29 - 29 07/19 H Specimen Type: PLASMA No comment entered. Ordering Provider: ROSE MOREAU Report Released Date/Time: Jul 19, 2021 10:29 AM Reporting Lab: [facility] [address] Performing Lab: [facility] [address] [place] [facility] LIPID PANEL,NO N-FASTIN G CHOLESTERO L NON HDL [MASS/VOLU ME] IN SERUM OR PLASMA 130 <129 - 129 07/19 H Specimen Type: PLASMA No comment entered. Ordering Provider: ROSE MOREAU Report Released Date/Time: Jul 19, 2021 10:29 AM Reporting Lab: [facility] [phone] Performing Lab: [facility] [address] [place] [facility] LIPID PANEL,NO N-FASTIN G TRIGLYCERI DE [MASS/VOLU ME] IN SERUM OR PLASMA 179 <149 - 149 07/19 H Specimen Type: PLASMA No comment entered. Ordering Provider: ROSE MOREAU Report Released Date/Time: Jul 19, 2021 10:29 AM Reporting Lab: [facility] [address] Performing Lab: [facility] [address] [place] [facility] CBC LEUKOCYTES [#/VOLUME] IN BLOOD BY AUTOMATED COUNT 6.69 4.0 - 11.0 07/19 Specimen Type: BLOOD No comment entered. Ordering Provider: ROSE MOREAU Report Released Date/Time: Jul 19, 2021 10:29 AM Reporting Lab: [facility] [address] Performing Lab: [facility] [address] [place] [facility] CBC ERYTHROCYT ES [#/VOLUME] IN BLOOD BY AUTOMATED COUNT 4.28 4.6 - 6.2 07/19 L Specimen Type: BLOOD No comment entered. Ordering Provider: ROSE MOREAU Report Released Date/Time: Jul 19, 2021 10:29 AM Reporting Lab: [facility] [address] Performing Lab: [facility] [address] [place] [facility] CBC HEMOGLOBIN [MASS/VOLU ME] IN BLOOD 14.2 13.5 - 17.9 07/19 Specimen Type: BLOOD No comment entered. Ordering Provider: ROSE MOREAU Report Released Date/Time: Jul 19, 2021 10:29 AM Reporting Lab: [facility] [address] Performing Lab: [facility] [address] [place] [facility] CBC HEMATOCRIT [VOLUME FRACTION] OF BLOOD BY AUTOMATED COUNT 39.5 41 - 54 07/19 L Specimen Type: BLOOD No comment entered. Ordering Provider: ROSE MOREAU Report Released Date/Time: Jul 19, 2021 10:29 AM Reporting Lab: [facility] [address] Performing Lab: [facility] [address] [place] [facility] CBC MCV [ENTITIC VOLUME] BY AUTOMATED COUNT 92.3 80 - 100 07/19 Specimen Type: BLOOD No comment entered. Ordering Provider: ROSE MOREAU Report Released Date/Time: Jul 19, 2021 10:29 AM Reporting Lab: [facility] [phone] Performing Lab: [facility] [address] [place] [facility] CBC MCH [ENTITIC MASS] BY AUTOMATED COUNT 33.2 27 - 33 07/19 H Specimen Type: BLOOD No comment entered. Ordering Provider: ROSE MOREAU Report Released Date/Time: Jul 19, 2021 10:29 AM Reporting Lab: [facility] [address] Performing Lab: [facility] [address] [place] [facility] CBC MCHC [MASS/VOLU ME] BY AUTOMATED COUNT 35.9 32.0 - 37.5 07/19 Specimen Type: BLOOD No comment entered. Ordering Provider: ROSE MOREAU Report Released Date/Time: Jul 19, 2021 10:29 AM Reporting Lab: [facility] [address] Performing Lab: [facility] [address] [place] [facility] CBC PLATELETS [#/VOLUME] IN BLOOD BY AUTOMATED COUNT 204 150 - 400 07/19 Specimen Type: BLOOD No comment entered. Ordering Provider: ROSE MOREAU Report Released Date/Time: Jul 19, 2021 10:29 AM Reporting Lab: [facility] [address] Performing Lab: [facility] [address] [place] [facility] CBC PLATELET MEAN VOLUME [ENTITIC VOLUME] IN BLOOD BY AUTOMATED COUNT 9.1 7.4 - 10.4 07/19 Specimen Type: BLOOD No comment entered. Ordering Provider: ROSE MOREAU Report Released Date/Time: Jul 19, 2021 10:29 AM Reporting Lab: [facility] [address] Performing Lab: [facility] [address] [place] [facility] CBC ERYTHROCYT E DISTRIBUTI ON WIDTH [RATIO] BY AUTOMATED COUNT 12.3 11.5 - 14.5 07/19 Specimen Type: BLOOD No comment entered. Ordering Provider: ROSE MOREAU Report Released Date/Time: Jul 19, 2021 10:29 AM Reporting Lab: [facility] [address] Performing Lab: [facility] [address] [place] [facility] Encounters Combined list of: 1) Encounters from Department of Veterans Affairs facilities going back up to thelast 18 months. 2) Encounters from the Department of Defense facilities going back up to 280 months. Location Location Details Encounter Type Encounter Number Reason For Visit Attending Provider ADM Date DC Date Status Disposition Source [place] [facility] OFF/OP EST JULY X REQ PHY/QHP [id number] Diagnos is: ICD-10- CM H40.003 Preglau coma, unspeci fied, bilater al
JAEL WEBER 05/23 [facility] O/P EST LOW 20-29 MIN [id number] Diagnos is: ICD-10- CM H40.053 Ocular hyperte nsion, bilater al
STU CHRISTENSEN ER S 05/23 [facility] O/P EST LOW 20-29 MIN [id number] [id number] Diagnos is: ICD-10- CM Z85.828 Persona l history of other maligna nt neoplas m of skin
BELGICA,N OAH I 11/25 [facility] O/P EST MOD 30-39 MIN [id number] Diagnos is: ICD-10- CM H40.053 Ocular hyperte nsion, bilater al
STU CHRISTENSEN ER S 12/19 [facility] Social History Combined list of available smoking, tobacco, and other social history from Department of Defense and Veterans Affairs facilities. Social History Type Response Date Comment Sourc e Tobacco smoking status [facility]TO[facility]CO NEVER USED 07/19/2021 [facility] of [facility]2019 [facility] History of tobacco use [facility]-TOBACCO FORMER USER 06/17/2018 [facility] History of tobacco use LIFETIME NON-TOBA WIPER BLENDER USER 06/29/2017 [facility] History of tobacco use LIFETIME NON-TOBA WIPER BLENDER USER 06/25/2016 [facility] History of tobacco use LIFETIME NON-TOBA WIPER BLENDER USER 06/26/2015 [facility] History of tobacco use FORMER TOBACCO US ER 7Y OR GREATER 06/27/2014 [facility] History of tobacco use FORMER TOBACCO US ER 7Y OR GREATER 10/01/2008 [facility] History of tobacco use FORMER TOBACCO US ER 7Y OR GREATER 07/23/2006 [facility] Plan of Care List of future care activities from Department of Veterans Affairs facilities. Additional future care activities may be listed in the Assessment and Plan section. Date/Time Care Activity Care Activity Detail Facili ty 12/18/2023 AMBULATORY - SURGERY AMBULATORY - SURGERY [facility] 12/18/2023 AMBULATORY - SURGERY AMBULATORY - SURGERY [facility] Advance Directives List of completed, amended, or rescinded Advance Directives on record at Department of [facility] Affairs facilities. An actual copy of the Directive is not included. Date Advance Directive Provider Source 06/09/2016 [facility] ADVANCE DIRECTIVE DISCUSSION ROBERT [facility] 07/23/2006 ADVANCE DIRECTIVE JOSSUE [facility]ANTRELL [facility]
--- OUTSIDE RECORDS SUMMARY | 2023-09-15 06:40 | XMS_ITS | Clinical Summary ---
Author Organization [employer] [facility] Address [place], [place] [address] Care Team Providers Care School Health Aide Name Role Phone Jimenez Hamilton MD Primary Care Provider [phone] Allergies No known active allergies Medications Medication Sig Dispensed Refills Start Date End Date Status simvastatin (ZOCOR) 40 mg tabletIndications :Cardiovascular risk factor Take 1 Tablet (40 mg) by mouth at bedtime. 90 Tablet 3 08/26/2023 Active lisinopril-hydroc hlorothiazide (10-12.5 mg) tablet (PRINZIDE; ZESTORETIC)Indica tions:HTN (hypertension) Take 1 Tablet by mouth once daily. 90 Tablet 1 08/26/2023 Active simvastatin (ZOCOR) 40 mg tabletIndications :Cardiovascular risk factor Take 1 Tablet (40 mg) by mouth at bedtime. 90 Tablet 3 07/03/2022 08/26/2023 Discontinued( Reorder (E-cancel not sent)) lisinopril-hydroc hlorothiazide (10-12.5 mg) tablet (PRINZIDE; ZESTORETIC)Indica tions:HTN (hypertension) TAKE ONE TABLET BY MOUTH EVERY DAY 90 Tablet 1 08/12/2023 08/26/2023 Discontinued( Reorder (E-cancel not sent)) Active Problems Problem Noted Date Diagnosed Date Spinal stenosis, lumbar alejandra on, with neurogenic claudication 08/23/2021 Status post left hip replacement 11/08/2020 Hip tendinitis, left 11/08/2020 Arthritis of lumbar spine 11/08/2020 Hypertensive disorder 06/13/2020 Chronic hip pain, left 06/08/2020 History of right hip replacement 06/08/2020 Sciatic pain, left 06/23/2018 Left buttock pain 06/23/2018 Primary osteoarthritis of left hip 01/19/2018 Left hip pain 01/19/2018 Other and unspecified hyperlipidemia 04/28/2006 Polyp of colon Encounters Date Type Department Care Team Description 08/26/2023 9:10 AM CDT Office Visit [address] [address] Jimenez Hamilton MD Medication Management (no concerns) 08/26/2023 Travel 08/11/[address] [facility] [address] [place] [address] Jimenez Hamilton MD Refill Request (Lisinopril-hydrochlorot hiazide 10 Mg-12.5 Mg) 07/27/2023 9:00 AM CDT Office Visit [facility] [address] [place] [address] Gerardo Lynn MD Musculoskeletal Problem (Follow up left glut tendon ultrasound guided injection ) 07/27/2023 Travel from Last 3 Months Immunizations Name Administration Dates Next Due COVID-19 Vaccine Spikevax (M oderna 50mcg/0.5mL) 12YO+ 8899-3543 Formula PF 01/19/2023 COVID-19 vaccine (Pfizer-Bio NTech 30mcg/0.3mL) 12YO+ BIVALENT PF, MDV 01/23/2022 COVID-19 vaccine (Pfizer-Bio NTech 30mcg/0.3mL) 12YO+ SLOANE-SUCROSE PF, MDV 07/15/2021 COVID-19 vaccine ([employer]-Bio NTech 30mcg/0.3mL) PF, MDV 01/08/2021,06/06/2020,05/16/2020 Influenza A (H1N1), Inactivated 04/12/2009,02/27 Influenza RIV4 (Age 18+ Year s) PRESERV FREE 01/22/2019 Influenza Virus, Unspecified 12/28/2020, 02/28/2012,02/27/2011,2009,01/05/2009 Influenza, High-dose Inactivated 02/17/2020,05/2017,01/13/2017 Influenza, High-dose Quadriv alent Inactivated 01/19/2023,01/23/2022,12/28/2020 Influenza, IIV3 (Age 6-35 mos) 02/25/2015 Influenza, IIV3 (Age >=3 years) 02/27/20 14,01/04/2013,04/01/2012,2010 Influenza, IIV4 (=>6mos) MDV 01/31/2016 Pneumococcal Conj 20-valent (Prevnar 20) 02/25/2023 Pneumococcal conj 13-Valent (Prevnar 13) 06/26/2015 Pneumococcal, Unspecified 01/05/2009 TD, UNSPECIFIED 03/30/2002 Tdap 07/03/2022,2012 Zoster (Shingrix-RZV, recombinant) 09/23/2018, Zoster (Zostavax-ZVL, live) 2012 Family History Medical History Relation Name Comments Heart Disease Father Relation Name Status Comments Father Mother Social History Tobacco Use Types Packs/Day Years Used Date Smoking Tobacco: Never Passive Smoke Exposure: Past Smokeless Tobacco: Never Tobacco Cessation:Counseling Given: Not Answered Alcohol Use Standard Drinks/Week Comments Yes 0 (1 standard drink = 0.6 oz pur e alcohol) Occ PHQ-2 Answer Date Recorded PHQ-2 TOTAL SCORE 0 02/25/2023 Social Connections Answer Date Recorded Frequency of Communication with Friends and Fami ly Not on file 08/28/2022 Financial Resource Strain Answer Date R ecorded Difficulty of Paying Living Expenses 3 08/19/2021 Difficulty of Paying Living Expenses Not on file 08/19/2021 Food Insecurity Answer Date Recorded Worried About Running Out of Food in the Last Ye ar 1 08/19/2021 Transportation Needs Answer Date Record ed Lack of Transportation (Medical) 1 08/19/2021 Housing Stability Answer Date Recorded Unable to Pay for Housing in the Last Year 1 08/19/2021 Sex and Gender Information Value Date Recorded Sex Assigned at Not on file Gender Identity Not on file Sexual Orientation Not on file Obstetrics History Last Filed Vital Signs Vital Sign Reading Time Taken Comments Blood Pressure 124/64 08/26/2023 9:19 AM CDT Pulse 84 08/26/2023 9:17 AM CDT Temperature 36.8 ??C (98.3 ??F) 07/27/2023 9:16 AM CD T Respiratory Rate 16 03/17/2022 10:2 0 AM DRUM TENDER Oxygen Saturation 94% 07/27/2023 9:16 AM CDT Inhaled Oxygen Concentration - - Weight 90.7 kg (199 lb 14.4 oz) 08/26/2023 9:17 AM CDT Height 172.5 cm (5' 7.91) 08/26/2023 9:17 AM CD T Body Mass Index 30.47 08/26/2023 9:17 AM CDT Plan of Treatment Upcoming Encounters Date Type Department Care Team (Late st Contact Info) Description 09/15/2023 7:15 AM CDT Procedure Only [facility] [address] [place] [address] Gerardo Lynn MD [address] [place] [address] Health Maintenance Due Date Last Done Comments COVID-19 vaccine series ( season) 2023 01/19/2023, 01/23/2022, 07/15/2021, Additional history exists Influenza for age 65+ 11/29/2023 01/19/2023 , 01/23/2022, 12/28/2020, Additional history exists Depression screening for age 12+ 02/26/2024 02/25/2023, 02/17/2022, 12/22/2019, Additional history exists Medicare Wellness for age 65+ 02/26/2024 02/25/2023, 02/17/2022 BMI (ht and wt on same day) for age 18+ 08/25/2024 08/26/2023, 07/04/2021, 05/23/2021, Additional history exists Tetanus booster 07/03/2032 07/03/2022, 03/0 03/2012, 03/30/2002 Zoster (shingles) series for age 50+ Completed 09/23/2018, 06/17/2018, 2012 Tdap Completed 07/03/2022, 2012 Pneumococcal series for age 65+ Completed 02/25/2023, 06/26/2015, 01/05/2009 Medical Devices Implanted Type Area Garment Patternmaker Device Identifier Shelf Expiration Date Model / Serial / Lot Trident Ii Tritanium Clusterhole Acetabular Shell Implanted:Qty: 1 on 06/13/2020 by Osorio Chance MD at [facility] Left: Hip [facility] 12/13/2024 [id number] / / [id number] 6.5 Mm Low Profile Hex Screw Implanted:Qty: 1 on 06/13/2020 by Osorio Chance MD at [facility] Left: Hip [facility] 04/16/2024 [id number] / / [id number] - [id number] - Trident X3 10 Degree Insert Implanted:Qty: 1 on 06/13/2020 by Osorio Chance MD at [facility] Left: Hip [employer] 10/31/2023 [id number] / / [id number] Accolade Ii 127 Degree Neck Angle Hip Stem Implanted:Qty: 1 on 06/13/2020 by Osorio Chance MD at [facility] Left: Hip [employer] 05/10/2025 [id number] / / [id number] [employer] Delta Ceramic V40 Femoral Head Implanted:Qty: 1 on 06/13/2020 by Osorio Chance MD at [facility] Left: Hip [employer] 03/06/2025 [id number] / / [id number] Procedures Procedure Name Priority Date/Time Associated Diagnosis Comments BASIC METABOLIC PANEL Routine 08/26/2023 9:53 AM CDT HTN (hypertension) from Last 3 Months Results * (ABNORMAL) BASIC METABOLIC PANEL (08/26/2023 9:53 AM CDT) SODIUM 140 136 - 145 mmol/L 08/26/2023 10:47 AM [facility] POTASSIUM 4.1 3.5 - 5.1 mmol/L 08/26/2023 10:47 AM [facility] CHLORIDE 103 98 - 107 mmol/L 08/26/2023 10:47 AM [facility] CO2,TOTAL 24 22 - 29 mmol/L 08/26/2023 10:47 AM [facility] ANION GAP 13 5 - 18 08/26/2023 10:47 AM [facility] GLUCOSE 139(H) 70 - 99 mg/dL 08/26/2023 10:47 AM [facility] CALCIUM 9.5 8.8 - 10.2 mg/dL 08/26/2023 10:47 AM [facility] BUN 22 8 - 23 mg/dL 08/26/2023 10:47 AM [facility] CREATININE 1.06 0.70 - 1.20 mg/dL 08/26/2023 10:47 AM [facility] BUN/CREAT RATIO 21(H) 10 - 20 10:47 AM [facility] eGFR 71(L) >90 mL/min/1.7 3m2 08/26/2023 10:47 AM [facility] Comment:As of 2021, eG FR is calculated by the CKD-EPI creatinine equation without race adjustment. ??eGFR can be influenced by muscle mass, exercise, and diet. ??The reported eGFR is an estimation only and is only applicable if the renal function is stable. Blood BLOOD SPECIMEN / Unknown Venipuncture / Unknown 08/26/2023 9:53 AM CDT 08/26/2023 9:53 AM T Jimenez Hamilton MD CHEMISTRY [facility] [address] [place] [address] from Last 3 Months Advance Directives Documents on File Type Date Recorded Patient Screen Printing Inspector Expl anation Healthcare Directive 04/29/2006 12:00 AM * Full Code (Latest Code Status on File) Date Activated Date Inactivated Comments 03/17/2022 8:43 AM 03/17/2022 1:25 PM Question Answer Comments Code Status Discussion: Discussed * Full Code Date Activated Date Inactivated Comments 06/13/2020 5:56 AM 06/14/2020 1:16 PM Question Answer Comments Code Status Discussion: Discussed Care Teams School Health Aide Relationship Specialty Start Date End Date Jimenez Hamilton [facility] [address] [facility] [address] P[facility] - General Family Practice 11/14/21
--- OUTSIDE RECORDS SUMMARY | 2023-09-15 06:40 | XMS_ITS | Continuity of Care Document ---
Author Organization [facility] Address [address] [place] [address] Phone Care Team Providers Care Payroll Consultant Name Role Phone Afshan VILLAGRAN, PhD, Mike [...] Stenosis) Lami, Facetectomy/Foraminotomy, Lumbar ( Stenosis) Office/Outpatient Visit,[facility] 2021 Advance Directives Directive Yes / No Effective Date File Name No Information Encounters Encounter Description Practice Location Reason(s) For Visit Diagnoses Date Provider Providers Copied on Encounter [facility], [address], [place], [id number], [place] tel:[phone] [facility] - [facility] [place] No Information Afshan Mckeon. [facility], [address], [place], [address], [place]. tel:[phone] OFFICE/OUTPAT IENT VISIT EST Phone [facility], [address], [place], [id number], [place] tel:[phone] [facility] No Information Afshan Mckeon. [facility] [place], [address], [place], [address], [place]. tel:[phone] Referring Provider: Walt Roach, [address], [address] . tel:[phone] [facility], [address], [place], [place], [id number], [place] tel:[phone] [facility] Encounter for other specified surgical aftercare Alex Garza. [facility] [place], [address] [facility] [address], [facility] [place], [place], [id number] , [place]. [phone] Referring Provider: Walt Roach, [address], [address] . tel:[phone] [facility], [address], [place], [id number], [place] tel:[phone] [facility] No Information Alex Garza. [facility] [place], [address] [facility] [address], [facility] [place], [id number] , [place]. [phone] Referring Provider: Walt Roach, [address], [address] . tel:[phone] [facility], [address], [place], [id number], [place] tel:[phone] [facility] No Information Afshan Mckeon. [facility] [place], [address], [place], [address], [place]. tel:[phone] Referring Provider: Walt Roach, [address], [address] . tel:[phone] Office/Outpat ient Visit,[place], [place] [facility], [address], [place], [place], [id number], [place] tel:[phone] [facility] - [place] Spinal stenosis, lumbar region with neurogenic claudication Afshan Mckeon. [facility], [address], [address], [place]. tel:[phone] Referring Provider: Walt Roach, [address], [address] . tel:[phone] Family History Family Member Type Diagnosis Age At Onset No Information Payers Payer name Insurance type Covered republican ID Authoriza mendez(s) [employer] [place] 2021 CI [id number] Social History Type Description Quantity Date Captured [...]
[2023-09-15 07:22] VITALS: BP 168/80; PULSE 76; RESP 16; O2SAT 95
[2023-09-15 08:30] VITALS: BP 126/73; PULSE 69; RESP 16; O2SAT 95
== END 2023-09-15 07:55 | disposition home or self-care (01) ==
PROVIDERS: PCP Family Medicine; Visit Provider Family Medicine
DX: M76.02 Gluteal tendinitis, left hip (principal); M25.552 Pain in left hip; Z96.642 Presence of left artificial hip joint
CPT/HCPCS: 27006; 76942; J0665